=== PATIENT | female | born 1965 | race Caucasian/White ===

== ENCOUNTER → 2018-11-11 | Outpatient (CLI) | payer BC ==
[2018-11-11 13:56] VITALS: BP 146/88; PULSE 114; RESP 16; TEMP 97.9; BMI 40.5
--- NOTE | 2018-11-11 14:18 | P.HPBAR ---
Bariatric H&P - History & Physicial H&P Date: 11/11/18 History & Physicial: Visit/CC: initial visit Patient initial contact: Initial weight: 107.19 kg Initial weight in pounds: 236.31 Height: 5 ft 4 in Initial BMI: 40.5 Last weight: Current weight: 107.19 kg Current weight in pounds: 236.31 Current BMI: 40.5 [place] body weight (based on NIH guidelines): 54.431 kg Excess body weight loss: 0.0% The patient is a 53 year-old F who presents for Bariatric Assessment. Patient presents today to the bariatric clinic as a new patient evaluation. Patient has suffered with her weight intermittently over the years. Recently she was in a injury with a 4 wheel quadrant and gained 40 pounds since March. She's tried a variety of different weight loss methods and is having difficulty at this time. Patient suffers from hypertension and arthritis. No history of DVT or dysphasia. No GERD symptoms. No history of previous EGD. Denies tobacco use. She is completed 3 months of a seven-month required supervised weight loss. Review of Systems The patient denies any acute changes in vision or hearing, no dysphagia or odynophagia, no chest pain or shortness of breath, no dysuria or hematuria, no headache, no runny nose, no rectal bleeding or melena, no unexplained weight loss Past Medical History Past Medical History: Hypertension, Thyroid Disorder History of Any Multi-Drug Resistant Organisms: None Reported Past Surgical History: Cholecystectomy, Orthopedic Surgery, Tubal Ligation Additional Past Surgical History / Comment(s): carpal tunnel, trigger finger, right knee surgery Past Anesthesia/Blood Transfusion Reactions: No Reported Reaction Past Psychological History: No Psychological Hx Reported Smoking Status: Former smoker Past Alcohol Use History: None Reported Past Drug Use History: None Reported - Past Family History Father Family Medical History: AFIB, CVA/TIA, Hypertension Mother Family Medical History: Diabetes Mellitus, Hypertension Sister(s) Family Medical History: Hypertension Brother(s) Family Medical History: Hypertension Surgical - Exam Vital Signs Temp Pulse Resp BP 97.9 F 114 H 16 146/88 11/11/18 13:51 11/11/18 13:51 11/11/18 13:51 11/11/18 13:51 Physical exam: General: Well-developed, well-nourished HEENT: Normocephalic, sclerae nonicteric Abdomen: Nontender, nondistended Extremities: No edema Neuro: Alert and oriented Bariatric Assessment & Plan (1) Morbid obesity with BMI of 40.0-44.9, adult Narrative/Plan: The risks and benefits of the various bariatric procedures were discussed in detail with the patient. Patient interested in sleeve gastrectomy at this time. Patient appears to be a good candidate for that procedure. We'll plan preoperative EGD and lab work. Patient will follow up with us again prior to surgical scheduling. Continue supervised weight loss. Status: Acute Bariatric Checklist Checklist: Plan: Checklist: EGD: 1. Hiatal hernia: 2. H. Pylori: HgbA1c: Vitamin D: Smoking: Former smoker Primary care physician referral: Migel Muñiz Psychiatry clearance: Cardiology clearance: Sleep study: Diet journal: VTE risk score: VTE risk level: Rehab needs at discharge:
[2018-11-11 15:12] LABS: HCT 49.2 % (34.0-46.0); HGB 16.1 gm/dL (11.4-16.0); MCH 28.4 pg (25.0-35.0); MCHC 32.6 g/dL (31.0-37.0); MCV 87.2 fL (80.0-100.0); Mean Platelet Volume 6.3; Platelet Count 387 k/uL (150-450); RBC 5.64 m/uL (3.80-5.40); RDW 13.7 % (11.5-15.5); WBC 10.1 k/uL (3.8-10.6)
[2018-11-11 18:04] LABS: Albumin 4.5 g/dL (3.80-4.90); Albumin/Globulin Ratio 1.67 (1.60-3.17); Anion Gap 8.5 mmol/L (4.00-12.00); Calcium 9.6 mg/dL (8.7-10.3); Carbon Dioxide 27.5 mmol/L (21.6-31.8); Globulin 2.7 g/dL (1.6-3.3); Potassium 4.4 mmol/L (3.5-5.5); Total Bilirubin 0.4 mg/dL (0.2-1.2); Total Protein 7.2 g/dL (6.2-8.2)
[2018-11-11 18:12] LABS: Vitamin D 25 Hydroxy 20.9 ng/mL (30.0-100.0)
[2018-11-11 18:17] LABS: Folate, Serum 17.4 ng/mL
[2018-11-11 22:01] LABS: Hemoglobin A1C 7.3 % (4.0-6.0)
== END | disposition home or self-care (01) ==
LOC: BARWHC3 13:28
PROVIDERS: ATTEND Surgery
DX: E66.01 Morbid (severe) obesity due to excess calories (principal); E89.1 Postprocedural hypoinsulinemia; E55.9 Vitamin D deficiency, unspecified; Z68.41 Body mass index [BMI] 40.0-44.9, adult
CPT/HCPCS: 36415; 80053; 82306; 82607; 82746; 83036; 83540; 84425; 85027; 93005; 99201

== ENCOUNTER 2019-03-19 17:46 | Observation (INO) | payer BC ==
[2019-03-19 18:31] LABS: Basophils # (A) 0.1 k/uL (0-0.2); Basophils % (A) 1 %; Eosinophils # (A) 0.6 k/uL (0-0.7); Eosinophils % (A) 5 %; HCT 45.2 % (34.0-46.0); HGB 15.2 gm/dL (11.4-16.0); Lymphocytes # (A) 2.9 k/uL (1.0-4.8); Lymphocytes % (A) 27 %; MCHC 33.6 g/dL (31.0-37.0); MCV 86.2 fL (80.0-100.0); Mean Platelet Volume 6.7; Monocytes # (A) 0.4 k/uL (0-1.0); Monocytes % (A) 4 %; Neutrophils # (A) 6.8 k/uL (1.3-7.7); Neutrophils % (A) 62 %; Platelet Count 385 k/uL (150-450); RBC 5.25 m/uL (3.80-5.40); RDW 15.6 % (11.5-15.5); WBC 10.9 k/uL (3.8-10.6)
[2019-03-19 18:37] LABS: INR 0.9 (<1.2); Partial Thromboplastin Time 26.2 sec (22.0-30.0)
--- NOTE | 2019-03-19 18:37 | XR ---
EXAMINATION TYPE: XR chest 2V DATE OF EXAM: 03/19/2019 COMPARISON: NONE HISTORY: Chest pain and short of breath TECHNIQUE: Frontal and lateral views of the chest are obtained. FINDINGS: Heart and mediastinum are normal. Lungs are clear. Diaphragm is normal. There are chest le ads. Bony thorax is intact. IMPRESSION: Normal chest. Normal heart.
[2019-03-19 18:48] LABS: ALT 37 U/L (9-52); AST 33 U/L (14-36); African American GFR (CKD) >90 (>60 ml/min/1.73 sqM); Albumin 4.7 g/dL (3.5-5.0); Alkaline Phosphatase 89 U/L (38-126); Anion Gap 12 mmol/L; Blood Urea Nitrogen 18 mg/dL (7-17); Calcium 9.6 mg/dL (8.4-10.2); Carbon Dioxide 22 mmol/L (22-30); Chloride 107 mmol/L (98-107); Glucose 141 mg/dL (74-99); Magnesium 1.7 mg/dL (1.6-2.3); Potassium 4.8 mmol/L (3.5-5.1); Sodium 141 mmol/L (137-145); Total Bilirubin 0.5 mg/dL (0.2-1.3)
--- NOTE | 2019-03-19 19:16 | ED ---
Chest Pain HPI - General Chief Complaint: Chest Pain Stated Complaint: Chest pain Time Seen by Provider: 03/19/19 17:54 Source: patient, RN notes reviewed, old records reviewed Mode of arrival: ambulatory Limitations: no limitations - History of Present Illness Initial Comments: This is a 53-year-old female the ER for evaluation chest pain chest pain that is been persistent even though she had stress test x-ray. Patient does have history of cardiac risk factors. Chest pain diaphoresis 10th 2 weeks. No recent travel history no sick contacts. Patient continues to chest pain shortness of breath here in the ER MD Complaint: chest pain -: week(s) Onset: during rest, during exertion Pain Location: substernal, left chest Pain Radiation: LUE Severity: moderate Severity scale (1-10): 4 Quality: heaviness Consistency: intermittent Improves With: nothing Worsens With: exertion Anginal Symptoms: dyspnea Other Symptoms: other (None) Treatments Prior to Arrival: none - Related Data Home Medications Medication Instructions Recorded Confirmed Lisinopril-Hctz 20-12.5 mg 1 tab PO DAILY 11/08/18 03/19/19 [Zestoretic 20-12.5] Aspirin [Adult Low Dose Aspirin EC] 81 mg PO HS 03/19/19 03/19/19 Atorvastatin [Lipitor] 40 mg PO HS 03/19/19 03/19/19 Sertraline [Zoloft] 100 mg PO DAILY 03/19/19 03/19/19 metFORMIN HCL ER [Glucophage Xr] 500 mg PO BID 03/19/19 03/19/19 Allergies Allergy/AdvReac Type Severity Reaction Status Date / Time No Known Allergies Allergy Verified 03/19/19 21:39 Review of Systems ROS Statement: Those systems with pertinent positive or pertinent negative responses have been documented in the HPI. ROS Other: All systems not noted in ROS Statement are negative. Past Medical History Past Medical History: Hypertension, Thyroid Disorder History of Any Multi-Drug Resistant Organisms: None Reported Past Surgical History: Cholecystectomy, Orthopedic Surgery, Tubal Ligation Additional Past Surgical History / Comment(s): carpal tunnel, trigger finger, right knee surgery Past Anesthesia/Blood Transfusion Reactions: No Reported Reaction Past Psychological History: No Psychological Hx Reported Smoking Status: Former smoker Past Alcohol Use History: None Reported Past Drug Use History: None Reported - Past Family History Father Family Medical History: AFIB, CVA/TIA, Hypertension Mother Family Medical History: Diabetes Mellitus, Hypertension Sister(s) Family Medical History: Hypertension Brother(s) Family Medical History: Hypertension General Exam Limitations: no limitations General appearance: anxious Head exam: Present: atraumatic, normocephalic, normal inspection Eye exam: Present: normal appearance, PERRL, EOMI. Absent: scleral icterus, conjunctival injection, periorbital swelling ENT exam: Present: normal exam, mucous membranes moist Neck exam: Present: normal inspection. Absent: tenderness, meningismus, lymphadenopathy Respiratory exam: Present: normal lung sounds bilaterally. Absent: respiratory distress, wheezes, rales, rhonchi, stridor Cardiovascular Exam: Present: regular rate, normal rhythm, normal heart sounds. Absent: systolic murmur, diastolic murmur, rubs, gallop, clicks GI/Abdominal exam: Present: soft, normal bowel sounds. Absent: distended, tenderness, guarding, rebound, rigid Extremities exam: Present: normal inspection, full ROM, normal capillary refill. Absent: tenderness, pedal edema, joint swelling, calf tenderness Back exam: Present: normal inspection Neurological exam: Present: alert, oriented X3, CN II-XII intact Psychiatric exam: Present: normal affect, normal mood Skin exam: Present: warm, dry, intact, normal color. Absent: rash Course Vital Signs 03/19/19 03/19/19 03/19/19 17:50 18:30 19:00 Temperature 97.8 F Pulse Rate 116 H 123 H 104 H Respiratory 18 29 H 17 Rate Blood Pressure 156/95 131/77 124/84 O2 Sat by Pulse 97 95 95 Oximetry 03/19/19 03/19/19 19:23 21:21 Temperature 98.4 F Pulse Rate 87 Respiratory 18 18 Rate Blood Pressure 124/83 O2 Sat by Pulse 96 Oximetry - Reevaluation(s) Reevaluation #1: Medical record including prior stress test is reviewed Patient has no current complaints Occasionally does have episodic chest pain without shortness of breath Chest Pain MDM - MDM 53 female the ER for evaluation chest pain shortness of breath. Patient did have recent stress test will admit for further evaluation monitoring with cardiology, patient is very concerned regarding symptoms and heart disease Critical Care Time Critical Care Time: Yes Total Critical Care Time: 31 Disposition Clinical Impression: Chest pain, Morbid obesity with BMI of 40.0-44.9, adult Disposition: ADMITTED IP TO THIS HOSP Condition: Stable Is patient prescribed a controlled substance at d/c from ED?: No
[2019-03-19] MEDS ORDERED: HEPARIN SODIUM,PORCINE 5,000 UNIT/ML 1 ML VIAL IV ONE (20:24)
[2019-03-19] MEDS ORDERED: NITROGLYCERIN SL TABS 0.4 MG TAB SUBLINGUAL PRN (20:24)
[2019-03-19] MEDS ORDERED: HEPARIN SODIUM,PORCINE 5,000 UNIT/ML 1 ML VIAL IV PRN (20:24)
[2019-03-19] MEDS ORDERED: ASPIRIN 81 MG PO STA (20:24)
[2019-03-19] MEDS: SODIUM CHLORIDE 0.9% 1,000 ML IV SCH (21:16)
[2019-03-19] MEDS: HEPARIN SOD,PORK IN 0.45% NACL 25,000 UNIT in 0.45% NACL 1 250ML.BAG IV SCH (21:17)
[2019-03-19 21:29] LABS: Glucose,Whole Blood 132 mg/dL (75-99)
[2019-03-19] MEDS: ATORVASTATIN 40 MG TAB PO SCH (23:16)
[2019-03-19] MEDS ORDERED: ACETAMINOPHEN TAB 325 MG TAB PO STA (23:17)
[2019-03-20] MEDS: SODIUM CHLORIDE 0.9% 1,000 ML IV SCH ×2 (05:24→11:34)
[2019-03-20 06:52] LABS: Mean Platelet Volume 6.7; Platelet Count 333 k/uL (150-450)
[2019-03-20 07:09] LABS: Cholesterol 201 mg/dL (<200); HDL Cholesterol 42 mg/dL (40-60); LDL Cholesterol,Calculated 135 mg/dL (0-99); Triglycerides 122 mg/dL (<150)
[2019-03-20 07:20] LABS: Glucose,Whole Blood 107 mg/dL (75-99)
[2019-03-20] MEDS: INSULIN ASPART (NovoLOG) 100 UNIT/ML VIAL SQ SCH ×4 (07:30→19:39)
[2019-03-20] MEDS: ASPIRIN 325 MG TAB PO SCH (09:09)
--- NOTE | 2019-03-20 09:25 | US ---
EXAMINATION TYPE: US venous doppler duplex LE DATE OF EXAM: 03/20/2019 9:10 AM COMPARISON: NONE CLINICAL HISTORY: leg pain. Pain bilateral feet SIDE PERFORMED: Bilateral TECHNIQUE: The lower extremity deep venous system is examined utilizing real time linear array sonog char with graded compression, doppler sonography and color-flow sonography. VESSELS IMAGED: External Iliac Vein (EIV) Common Femoral Vein Deep Femoral Vein Greater Saphenous Vein * Femoral Vein Popliteal Vein Small Saphenous Vein * Proximal Calf Veins (* superficial vessels) Right Leg: No evidence of DVT as visualized Left Leg: No evidence of DVT as visualized No popliteal fossa lesion is seen. IMPRESSION: THIS EXAMINATION IS NEGATIVE FOR DVT IN BOTH LEGS.
[2019-03-20 11:46] LABS: Glucose,Whole Blood 114 mg/dL (75-99)
--- NOTE | 2019-03-20 12:02 | P.CRDCN ---
History of Present Illness History of present illness: This is a pleasant 53-year-old female past medical history significant for hypertension, diabetes mellitus, dyslipidemia, hypothyroidism and obesity. She follows in the office with Dr. Kelly. Weakness or seizure consultation secondary to chest discomfort. She states intermittently for the previous couple of months she has been experiencing chest heaviness in the midsternal region and radiates to the right shoulder. Her symptoms are not related to physical activity or exertion. Intake. She has had her gallbladder removed in the past. At times she states the pain becomes extremely intense and crushing however for the most part is a tall heavy ache. Was not associated with alvarado rtness of breath, dizziness, nausea, vomiting or diaphoresis. She states she has been taking Tums [id number] regularly with no relief. She also was complaining of bilateral extremities discomfort and heaviness. She states she did have a stress test in the office on Thursday however she continues to have chest discomfort and is becoming quite frustrated because cannot be determined. EKG reveals sinus tachycardia heart rate of 119, inferior Q waves noted. No acute ST or T wave abnormalities noted. Chest x-ray is negative for an acute cardiopulmonary process. Laboratory data reviewed, WBC 10.9, hemoglobin 18.2, platelets 333, sodium 141, potassium 4.8, creatinine 0.79, magnesium 1.7, troponin negative 3, BNP 96, LDL 135 and a 42. Current cardiac medications include atorvastatin 40 mg which she just started yesterday, lisinopril/HCTZ 20/12.5 mg daily and aspirin 81 mg daily. At the time of my exam: CONSTITUTIONAL: Denies fever. Denies chills. EYES: Denies blurred vision. Denies vision changes. Denies eye pain. EARS, NOSE, MOUTH & THROAT: Denies headache. Denies sore throat. Denies ear pain. CARDIOVASCULAR: Denies chest pain. Denies shortness of breath. Denies orthopnea. Denies PND. Denies palpitations. RESPIRATORY: Denies cough. GASTROINTESTINAL: Denies abdominal pain. Denies diarrhea. Denies constipation. Denies nausea. Denies vomiting. MUSCULOSKELETAL: Denies myalgias. INTEGUMENTARY: Denies pruitis. Denies rash. NEUROLOGIC: Denies numbness. Denies tingling. Denies weakness. PSYCHIATRIC: Denies anxiety. Denies depression. ENDOCRINE: Denies fatigue. Denies weight change. Denies polydipsia. Denies polyurina. GENITOURINARY: Denies burning, hematuria or urgency with micturation. HEMATOLOGIC: Denies history of anemia. Denies bleeding. Blood pressure 103/71 heart rate 77 afebrile maintaining oxygen saturation on room air GENERAL: This is a 53-year-old female in no apparent distress at the time of my examination. HEENT: Head is atraumatic, normocephalic. Pupils are equal, round. Sclerae anicteric. Conjunctivae are clear. Mucous membranes of the mouth are moist. Neck is supple. There is no jugular venous distention. No carotid bruit is heard. LUNGS: Clear to auscultation no wheezes, rales or rhonchi. No chest wall tenderness is noted on palpation or with deep breathing. HEART: Regular rate and rhythm without murmurs, rubs or gallops. S1 and S2 heard. ABDOMEN: Soft, nontender. Bowel sounds are heard. No organomegaly noted. EXTREMITIES: No evidence of peripheral edema and no calf tenderness noted. VASCULAR: Radial and dorsalis pedis pulses palpated, no evidence of clubbing. NEUROLOGIC: Patient is awake, alert and oriented x3. ASSESSMENT Persistent chest discomfort, an acute coronary event has been ruled out. Hypertension Dyslipidemia Diabetes mellitus Hypothyroidism Obesity, BMI 36 PLAN Check bilateral lower extremity venous duplex to rule out a DVT. Nothing by mouth after midnight for possible cardiac catheterization in the morning. We will obtain records from the office and review the stress test that she had on Thursday. If she did not have an echocardiogram we will get one in the morning. Further recommendations to follow based upon clinical course. Thank you kindly for this consultation. Nurse Practitioner note has been reviewed, I agree with a documented findings and plan of care. Patient was seen and examined. Past Medical History Past Medical History: Diabetes Mellitus, Hypertension, Thyroid Disorder Additional Past Medical History / Comment(s): DM diagnosed 10/2018 History of Any Multi-Drug Resistant Organisms: None Reported Past Surgical History: Cholecystectomy, Orthopedic Surgery, Tubal Ligation Additional Past Surgical History / Comment(s): carpal tunnel, trigger finger, right knee surgery Past Anesthesia/Blood Transfusion Reactions: No Reported Reaction Smoking Status: Former smoker - Past Family History Father Family Medical History: AFIB, CVA/TIA, Hypertension Mother Family Medical History: Diabetes Mellitus, Hypertension Sister(s) Family Medical History: Hypertension Brother(s) Family Medical History: Hypertension Medications and Allergies Home Medications Medication Instructions Recorded Confirmed Type Lisinopril-Hctz 20-12.5 mg 1 tab PO DAILY 11/08/18 03/19/19 History [Zestoretic 20-12.5] Aspirin [Adult Low Dose Aspirin EC] 81 mg PO HS 03/19/19 03/19/19 History Atorvastatin [Lipitor] 40 mg PO HS 03/19/19 03/19/19 History Sertraline [Zoloft] 100 mg PO DAILY 03/19/19 03/19/19 History metFORMIN HCL ER [Glucophage Xr] 500 mg PO BID 03/19/19 03/19/19 History Allergies Allergy/AdvReac Type Severity Reaction Status Date / Time No Known Allergies Allergy Verified 03/19/19 21:39 Physical Exam Vitals: Vital Signs Temp Pulse Pulse Pulse Resp BP BP 03/20/19 07:05 97.7 F 60 18 105/66 03/20/19 04:00 97.7 F 79 16 101/66 03/19/19 23:49 98.3 F 71 15 102/64 03/19/19 21:34 97.9 F 82 15 127/73 03/19/19 21:21 18 03/19/19 19:23 98.4 F 87 18 124/83 03/19/19 19:00 104 H 17 124/84 03/19/19 18:30 123 H 29 H 131/77 03/19/19 17:50 97.8 F 116 H 18 156/95 Pulse Ox 03/20/19 07:05 98 03/20/19 04:00 98 03/19/19 23:49 97 03/19/19 21:34 98 03/19/19 21:21 03/19/19 19:23 96 03/19/19 19:00 95 03/19/19 18:30 95 03/19/19 17:50 97 Intake and Output 03/19/19 03/20/19 03/20/19 22:59 06:59 14:59 Intake Total 73.015 Balance 73.015 Intake: Intake, IV Titration 73.015 Amount Heparin Sod,Pork in 0.45% 73.015 NaCl 25,000 unit In 0.45 % NaCl 1 250ml.bag @ 10.5 UNITS/KG/HR 10.002 mls/ hr IV .Q24H [facility] Rx#: [id number] Other: Voiding Method Toilet Toilet # Voids 1 Weight 95.254 kg Results 03/20/19 06:35 03/19/19 18:14 Cardiac Enzymes 03/19/19 03/19/19 03/20/19 Range/Units 18:14 18:14 00:23 AST 33 (14-36) U/L Troponin I <0.012 <0.012 (0.000-0.034) ng/mL 03/20/19 Range/Units 06:35 AST (14-36) U/L Troponin I <0.012 (0.000-0.034) ng/mL Coagulation 03/19/19 03/20/19 Range/Units 18:14 03:48 PT 10.0 (9.0-12.0) sec APTT 26.2 35.4 H (22.0-30.0) sec Lipids 03/20/19 Range/Units 06:35 Triglycerides 122 (<150) mg/dL Cholesterol 201 H (<200) mg/dL HDL Cholesterol 42 (40-60) mg/dL CBC 03/19/19 03/20/19 Range/Units 18:14 06:35 WBC 10.9 H (3.8-10.6) k/uL RBC 5.25 (3.80-5.40) m/uL Hgb 15.2 (11.4-16.0) gm/dL Hct 45.2 (34.0-46.0) % Plt Count 385 333 (150-450) k/uL Comprehensive Metabolic Panel 03/19/19 Range/Units 18:14 Sodium 141 (137-145) mmol/L Potassium 4.8 (3.5-5.1) mmol/L Chloride 107 (98-107) mmol/L Carbon Dioxide 22 (22-30) mmol/L BUN 18 H (7-17) mg/dL Creatinine 0.79 (0.52-1.04) mg/dL Glucose 141 H (74-99) mg/dL Calcium 9.6 (8.4-10.2) mg/dL AST 33 (14-36) U/L ALT 37 (9-52) U/L Alkaline Phosphatase 89 (38-126) U/L Total Protein 8.0 (6.3-8.2) g/dL Albumin 4.7 (3.5-5.0) g/dL Current Medications Generic Name Dose Route Start Last Admin Trade Name Edgarq PRN Reason Stop Dose Admin Aspirin 325 mg 03/20/19 09:00 Aspirin PO DAILY [facility] Atorvastatin Calcium 40 mg 03/19/19 22:15 03/19/19 23:16 Lipitor PO 40 mg HS AMADOU Administration Heparin Sodium (Porcine) 0 unit 03/19/19 20:24 03/20/19 04:42 Heparin IV 4,000 unit Q6HR PRN Administration Low PTT Protocol Heparin Sodium/Sodium Chloride 250 mls @ 10.002 mls/hr 03/19/19 20:30 03/20/19 04:35 25,000 unit/ Sodium Chloride IV 13.5 units/kg/hr .Q24H AMADOU 12.859 mls/hr Titration Protocol 10.5 UNITS/KG/HR Sodium Chloride 1,000 mls @ 100 mls/hr 03/19/19 20:30 03/20/19 05:24 Saline 0.9% IV 100 mls/hr .Q10H AMADOU Administration Insulin Aspart 0 unit 03/20/19 07:30 03/20/19 07:30 Novolog SQ Not Given ACHS [facility] Protocol Nitroglycerin 0.4 mg 03/19/19 20:24 Nitrostat SUBLINGUAL Q5M PRN Chest Pain Intake and Output 03/19/19 03/20/19 03/20/19 22:59 06:59 14:59 Intake Total 73.015 Balance 73.015 Intake: Intake, IV Titration 73.015 Amount Heparin Sod,Pork in 0.45% 73.015 NaCl 25,000 unit In 0.45 % NaCl 1 250ml.bag @ 10.5 UNITS/KG/HR 10.002 mls/ hr IV .Q24H [facility] Rx#: [id number] Other: Voiding Method Toilet Toilet # Voids 1 Weight 95.254 kg 03/20/19 06:35 03/19/19 18:14
--- NOTE | 2019-03-20 14:38 | P.HPIM ---
History of Present Illness H&P Date: 03/20/19 Chief Complaint: Chest discomfort on and off for the past 1 week Ms. Shultz is a 53-year-old female with a past medical history of hypertension, obesity, recently diagnosed with diabetes mellitus, thyroid disorder coming into the hospital with a chief complaint of chest pressure-like symptoms that have been going on for the past 1-2 weeks. Patient states that for the past 2 weeks she has been experiencing chest pressure-like symptoms in the midsternal area on and off. There are no aggravating or relieving factors she mentions that she sits and watches television and she can have the pain come and go. Patient denies having any nausea or vomiting or dizziness or diaphoresis with these chest pains. No relationship with physical activity or exertion. She also mentions about her right lower extremity pain and heaviness. She mentions about having a stress test done in an outpatient setting, however she still continues to have this chest heaviness symptoms and she is worried about it and so caught herself admitted. As per her patient had similar type of episode that happened 1 year back. On review of system patient denies having any shortness of breath, cough. No fevers chills or rigors. No abdominal pain nausea vomiting or diarrhea. No slurring of speech or weakness of her extremities. No facial droop. No neck rigidity. She denies having any recent travel. She denies having any lower extremity edema. No orthopnea PND. No hematuria or dysuria. In the emergency the patient had lab work done which was within normal limits. She had serial troponins 2 less than 0.012 and She had an EKG showing sinus tachycardia with no ST or T-wave abnormalities. Chest x-ray negative for any acute cardiopulmonary process. Review of Systems CONSTITUTIONAL: Denies fever. Denies chills. EYES: Denies blurred vision. Denies vision changes. Denies eye pain. EARS, NOSE, MOUTH & THROAT: Denies headache. Denies sore throat. Denies ear pain. CARDIOVASCULAR: As per HPI RESPIRATORY: Denies cough. GASTROINTESTINAL: Denies abdominal pain. Denies diarrhea. Denies constipation. Denies nausea. Denies vomiting. MUSCULOSKELETAL: Denies myalgias. INTEGUMENTARY: Denies pruitis. Denies rash. NEUROLOGIC: Denies numbness. Denies tingling. Denies weakness. PSYCHIATRIC: Denies anxiety. Denies depression. ENDOCRINE: Denies fatigue. Denies weight change. Denies polydipsia. Denies polyurina. GENITOURINARY: Denies burning, hematuria or urgency with micturation. HEMATOLOGIC: Denies history of anemia. Denies bleeding. All 14 of his systems are negative except for the ones mentioned above Past Medical History Past Medical History: Diabetes Mellitus, Hypertension, Thyroid Disorder Additional Past Medical History / Comment(s): DM diagnosed 10/2018 History of Any Multi-Drug Resistant Organisms: None Reported Past Surgical History: Cholecystectomy, Orthopedic Surgery, Tubal Ligation Additional Past Surgical History / Comment(s): carpal tunnel, trigger finger, right knee surgery Past Anesthesia/Blood Transfusion Reactions: No Reported Reaction Smoking Status: Former smoker - Past Family History Father Family Medical History: AFIB, CVA/TIA, Hypertension Mother Family Medical History: Diabetes Mellitus, Hypertension Sister(s) Family Medical History: Hypertension Brother(s) Family Medical History: Hypertension Medications and Allergies Home Medications Medication Instructions Recorded Confirmed Type Lisinopril-Hctz 20-12.5 mg 1 tab PO DAILY 11/08/18 03/19/19 History [Zestoretic 20-12.5] Aspirin [Adult Low Dose Aspirin EC] 81 mg PO HS 03/19/19 03/19/19 History Atorvastatin [Lipitor] 40 mg PO HS 03/19/19 03/19/19 History Sertraline [Zoloft] 100 mg PO DAILY 03/19/19 03/19/19 History metFORMIN HCL ER [Glucophage Xr] 500 mg PO BID 03/19/19 03/19/19 History Allergies Allergy/AdvReac Type Severity Reaction Status Date / Time No Known Allergies Allergy Verified 03/19/19 21:39 Physical Exam Vitals: Vital Signs Temp Pulse Pulse Pulse Resp BP BP 03/20/19 12:00 79 77 18 03/20/19 11:50 97.5 F L 77 18 103/71 03/20/19 08:00 18 03/20/19 07:05 97.7 F 60 18 105/66 03/20/19 04:00 97.7 F 79 16 101/66 03/19/19 23:49 98.3 F 71 15 102/64 03/19/19 21:34 97.9 F 82 15 127/73 03/19/19 21:21 18 03/19/19 19:23 98.4 F 87 18 124/83 03/19/19 19:00 104 H 17 124/84 03/19/19 18:30 123 H 29 H 131/77 03/19/19 17:50 97.8 F 116 H 18 156/95 Pulse Ox 03/20/19 12:00 03/20/19 11:50 95 03/20/19 08:00 03/20/19 07:05 98 03/20/19 04:00 98 03/19/19 23:49 97 03/19/19 21:34 98 03/19/19 21:21 03/19/19 19:23 96 03/19/19 19:00 95 03/19/19 18:30 95 03/19/19 17:50 97 Intake and Output 03/19/19 03/20/19 03/20/19 22:59 06:59 14:59 Intake Total 73.015 600 Balance 73.015 600 Intake: Intake, IV Titration 73.015 Amount Heparin Sod,Pork in 0.45% 73.015 NaCl 25,000 unit In 0.45 % NaCl 1 250ml.bag @ 10.5 UNITS/KG/HR 10.002 mls/ hr IV .Q24H [facility] Rx#: [id number] Oral 400 Other 200 Other: Voiding Method Toilet Toilet Toilet # Voids 1 Weight 95.254 kg GEN. APPEARANCE: alert, in no apparent distress HEAD EXAM: atraumatic, normocephalic, normal inspection EYE EXAM: No pallor. No icterus NECK EXAM: No thyromegaly. No lymphadenopathy. RESPIRATORY EXAM: Bilateral breath sounds are positive. No wheeze or crackles. CARDIOVASCULAR EXAM: S1 and S2 heard. Tachycardia. GI/ABDOMINAL EXAM: Abdomen is soft nontender. Normal bowel sounds. Organomegaly could not be appreciated due to huge body habitus EXTREMITIES EXAM: No peripheral edema. NEUROLOGICAL EXAM: alert, oriented X3, no focal neurological deficits. PSYCHIATRIC EXAM: normal affect, normal mood SKIN EXAM: warm, dry, intact, normal color. Absent: rash Results CBC & Chem 7: 03/20/19 06:35 03/19/19 18:14 Labs: Abnormal Lab Results - Last 24 Hours (Table) 07/03/19/19 03/19/19 Range/Units 18:14 18:14 21:27 WBC 10.9 H (3.8-10.6) k/uL RDW 15.6 H (11.5-15.5) % APTT (22.0-30.0) sec BUN 18 H (7-17) mg/dL Glucose 141 H (74-99) mg/dL POC Glucose (mg/dL) 132 H (75-99) mg/dL Cholesterol (<200) mg/dL LDL Cholesterol, Calc (0-99) mg/dL 03/20/19 03/20/19 03/20/19 Range/Units 03:48 06:35 07:18 WBC (3.8-10.6) k/uL RDW (11.5-15.5) % APTT 35.4 H (22.0-30.0) sec BUN (7-17) mg/dL Glucose (74-99) mg/dL POC Glucose (mg/dL) 107 H (75-99) mg/dL Cholesterol 201 H (<200) mg/dL LDL Cholesterol, Calc 135 H (0-99) mg/dL 03/20/19 03/20/19 Range/Units 10:55 11:44 WBC (3.8-10.6) k/uL RDW (11.5-15.5) % APTT 44.7 H (22.0-30.0) sec BUN (7-17) mg/dL Glucose (74-99) mg/dL POC Glucose (mg/dL) 114 H (75-99) mg/dL Cholesterol (<200) mg/dL LDL Cholesterol, Calc (0-99) mg/dL Thrombosis Risk Factor Assmnt - Choose All That Apply Any of the Below Risk Factors Present?: Yes Each Factor Represents 1 point: Age 41-60 years, Obesity (BMI >25) Other Risk Factors: No Other congenital or acquired thrombophilia - If yes, enter type in comment: No Thrombosis Risk Factor Assessment Total Risk Factor Score: 2 Thrombosis Risk Factor Assessment Level: Low Risk Assessment and Plan Assessment: ASSESSMENT Unstable angina Hypertension Recently diagnosed with type 2 diabetes mellitus Dyslipidemia Hypothyroidism Obesity with BMI of 36 PLAN: Patient has been started on heparin drip, aspirin and statin. We will continue to monitor EKG and serial troponins. As the patient recently had a stress test we'll try to get those reports. Cardiology has been consulted and planning for Tomorrow morning. Home medications have been resumed. Blood pressure has been running on the lower side so her blood pressure medications have been put on hold. Further recommendations to follow depending on the progress of the patient. The treatment plan was discussed in detail with the patient and her family members at the bedside in detail.
[2019-03-20 16:28] LABS: Glucose,Whole Blood 125 mg/dL (75-99)
[2019-03-20 19:39] LABS: Glucose,Whole Blood 127 mg/dL (75-99)
[2019-03-20] MEDS: ATORVASTATIN 40 MG TAB PO SCH (20:02)
[2019-03-20] MEDS: HEPARIN SOD,PORK IN 0.45% NACL 25,000 UNIT in 0.45% NACL 1 250ML.BAG IV SCH (23:03)
[2019-03-21] MEDS: SODIUM CHLORIDE 0.9% 1,000 ML IV SCH ×2 (03:49→17:04)
[2019-03-21] MEDS: ASPIRIN 325 MG TAB PO SCH (06:40)
[2019-03-21 06:59] LABS: Glucose,Whole Blood 119 mg/dL (75-99)
[2019-03-21 07:11] LABS: Mean Platelet Volume 6.2; Platelet Count 338 k/uL (150-450)
[2019-03-21 07:35] VITALS: RESP 16
[2019-03-21] MEDS: INSULIN ASPART (NovoLOG) 100 UNIT/ML VIAL SQ SCH ×3 (07:56→17:30)
[2019-03-21] MEDS ORDERED: ALPRAZolam 0.25 MG TAB PO PRN (08:02)
[2019-03-21] MEDS ORDERED: ALPRAZolam 0.5 MG TAB PO PRN (08:02)
--- NOTE | 2019-03-21 08:22 | PN ---
PROGRESS NOTE Ayesha Shultz is doing well today. She is quite anxious. She is keen on having a cardiac cath and insists the stress test may not show any abnormalities. She had a stress echo on Thursday. We will review these results. Her troponins are negative. She is resting comfortably without any symptoms. However, she is anxious and wishes to have a cardiac cath. Vital signs stable. S1, S2 heard normally. Lungs reveal bilateral decent air entry. Abdomen is soft, nontender. Lower extremities reveal normal pulses. No edema. Central nervous system is normal. This patient has type 2 diabetes, newly diagnosed and hypertension and chest pain syndrome seems atypical with negative troponins. However, I will speak to Dr. Booker, review the stress echo that was performed on Thursday and we will consider cardiac catheterization based on findings. Discussed my thoughts in detail with the patient. I will talk to Dr. Booker and review the stress echo. For now we will continue current medications. Patient is comfortable. MMODL / IJN: [id number] /
[2019-03-21] MEDS ORDERED: SERTRALINE 100 MG TAB PO SCH (09:00)
[2019-03-21] MEDS ORDERED: LIDOCAINE 1% INJ 10MG/ML (20 ML MDV) ONE (09:15)
[2019-03-21] MEDS ORDERED: VERAPAMIL 2.5 MG/ML 2 ML AMP ONE (09:15)
[2019-03-21] MEDS ORDERED: fentaNYL (PF) 50 MCG/ML 2 ML AMP ONE (09:25)
[2019-03-21] MEDS ORDERED: fentaNYL (PF) 50 MCG/ML 2 ML AMP IV ONE (09:37)
[2019-03-21] MEDS ORDERED: MIDAZOLAM (PF) 2 MG/2 ML VIAL IV ONE (09:38)
[2019-03-21] MEDS ORDERED: LIDOCAINE 1% INJ 10MG/ML (20 ML MDV) SQ ONE (09:46)
[2019-03-21] MEDS ORDERED: HEPARIN SODIUM 1,000 UN/ML (10ML VL) ONE (09:49)
[2019-03-21] MEDS: VERAPAMIL SYRINGE (5 MG/10 ML) INTRAARTER ONE ×2 (09:52→10:06)
[2019-03-21] MEDS ORDERED: NITROGLYCERIN OINT 1 INCH/GM PACKET TOPICAL ONE ×2 (09:55→09:57)
[2019-03-21] MEDS ORDERED: IOPAMIDOL-370 125ML BTL INJ ONE (10:05)
[2019-03-21] MEDS ORDERED: IV FLUID CONTINUATION 400 ML IV ONE (10:06)
[2019-03-21] MEDS ORDERED: RX INFO: IV CONTRAST WAS GIVEN 1 EACH MISC MISCELLANE PRN (10:26)
--- NOTE | 2019-03-21 10:26 | P.PCN ---
Date of Procedure: 03/21/19 Preoperative Diagnosis: Chest pain, recurrent Postoperative Diagnosis: Normal coronary arteries Procedure(s) Performed: Left heart catheterization without left ventriculography Description of Procedure: HISTORY: This is a 52-year-old female with history of hypertension, diabetes and hyperlipidemia and also hypothyroidism was been experiencing chest pain. Patient was evaluated by stress echocardiogram which was negative for ischemia. However, patient has been having chest pain and palpitation and is admitted through the emergency room to the hospital. Her cardiac enzymes and EKGs are negative. Patient was given the information was explained that the pains may be noncardiac. However, patient has been having recurrent chest pains and has multiple risk factors and family history, and requested that patient have a card iac catheterization for definitive diagnosis. This was explained the risks and benefits of the procedure which she fully understood and accepted CONSENT:I have discussed the risks, benefits and alternative therapies for the above-mentioned procedure and for both sedation/analgesia as well as necessary blood product administration, if indicated, as they pertain to this patient. The patient has indicated understanding and acceptance of the risks and procedures discussed. PROCEDURE: Patient was brought to the lab in a fasting state. Patient was given some IV sedation. The right groin is infiltrated with lidocaine and right femoral artery was entered using Seldinger technique. A 6-Iraqi catheter was left in place and selective coronary arteriography and left ventriculography was performed. Patient tolerated the procedure well. Femoral angiogram was performed and Angio-Seal was applied for hemostasis. No immediate complications were noted and patient was transferred to [facility] in a stable condition Conscious Sedation: Versed 1 mg Fentanyl 50 g Duration 29 minutes HEMODYNAMICS:. The aortic pressure is about 130/85. The left ventricle end- diastolic pressure is about 12-16. There was no gradient across the aortic valve SELECTIVE CORONARY ARTERIOGRAPHY: LEFT MAIN: This is normal in length and patent and free of occlusive disease THE LEFT ANTERIOR DESCENDING CORONARY ARTERY:. This is a good caliber vessel giving rise to small septal and several diagonal branches of small caliber. The LAD and branches are free of any significant occlusive disease THE LEFT CIRCUMFLEX AND IS CORONARY ARTERY:. The circumflex is a good caliber vessel and dominant, giving rise good-sized OM branch. The circumflex coronary artery and branches are free of occlusive disease THE RIGHT CORONARY ARTERY:. Small and nondominant and free of occlusive disease LEFT VENTRICULOGRAPHY:. Not performed FINAL IMPRESSION:, Normal coronary arteries. Elevated end-diastolic pressure PLAN:. Maximum medical therapy and risk factor modification PROGNOSIS: Fair
[2019-03-21] MEDS ORDERED: SODIUM CHLORIDE 0.9% 1,000 ML IV SCH (10:30)
[2019-03-21 11:45] LABS: Glucose,Whole Blood 203 mg/dL (75-99)
[2019-03-21] MEDS ORDERED: ACETAMINOPHEN TAB 325 MG TAB PO PRN (12:39)
[2019-03-21 12:53] VITALS: TEMP 97.5
[2019-03-21 14:20] VITALS: BP 127/57; PULSE 78
[2019-03-21 16:49] LABS: Glucose,Whole Blood 115 mg/dL (75-99)
--- NOTE | 2019-03-21 16:53 | P.DS ---
Providers Date of admission: 03/19/19 20:24 Attending physician: Migel Muñiz Consults: 03/19/19 20:24 Consult Physician Urgent Consulting Provider: Jean Kelly Consult Reason/Comments: cp Do you want consulting provider notified?: Yes Primary care physician: Migel Muñiz Hospital Course: Final Diagnoses: Unstable angina, status post cardiac catheterization reporting normal coronaries. Hypertension Recently diagnosed with type 2 diabetes mellitus Dyslipidemia Hypothyroidism Obesity with BMI of 36 Hospital course:Ms. Shultz is a 53-year-old female with a past medical history of hypertension, obesity, recently diagnosed with diabetes mellitus, thyroid disorder coming into the hospital with a chief complaint of chest pressure-like symptoms that have been going on for the past 1-2 weeks. Patient states that for the past 2 weeks she has been experiencing chest pressure-like symptoms in the midsternal area on and off. There are no aggravating or relieving factors she mentions that she sits and watches television and she can have the pain come and go. Patient denies having any nausea or vomiting or dizziness or diaphoresis with these chest pains. No relationship with physical activity or exertion. She also mentions about her right lower extremity pain and heaviness. She mentions about having a stress test done in an outpatient setting, however she still continues to have this chest heaviness symptoms and she is worried about it and so caught herself admitted. As per her patient had similar type of episode that happened 1 year back. On review of system patient denies having any shortness of breath, cough. No fevers chills or rigors. No abdominal pain nausea vomiting or diarrhea. No slurring of speech or weakness of her extremities. No facial droop. No neck rigidity. She denies having any recent travel. She denies having any lower extremity edema. No orthopnea PND. No hematuria or dysuria. In the emergency the patient had lab work done which was within normal limits. She had serial troponins 2 less than 0.012 and She had an EKG showing sinus tachycardia with no ST or T-wave abnormalities. Chest x-ray negative for any acute cardiopulmonary process. Evaluated by cardiology, underwent cardiac catheterization reporting normal coronary arteries, elevated end-diastolic pressure; recommending maximizing medical therapy and risk factor modification. Significant clinical improvement. Cleared by cardiology for discharge. She is being discharged home in stable condition with guarded prognosis. GEN. APPEARANCE: alert and oriented 3, no acute distress RESPIRATORY EXAM: Bilateral breath sounds are positive. No wheeze or crackles. CARDIOVASCULAR EXAM: S1 and S2 heard, regular, no murmur rubs or gallops GI/ABDOMINAL EXAM: Abdomen is soft nontender. Normal bowel sounds. No Organomegaly. No guarding, no rigidity. EXTREMITIES EXAM: No peripheral edema. NEUROLOGICAL EXAM: no focal neurological deficits. The impression and plan of care has been dictated as directed. : I performed a history and examination of this patient, discussed the same with the dictator. I agree with the dictator's note ,documented as a scribe. Any additional findings or plans will be noted. Time taken: 35 minutes Patient Condition at Discharge: Undetermined Plan - Discharge Summary Discharge Rx Participant: No New Discharge Prescriptions: Continue Lisinopril-Hctz 20-12.5 mg [Zestoretic 20-12.5] 1 tab PO DAILY metFORMIN HCL ER [Glucophage Xr] 500 mg PO BID Sertraline [Zoloft] 100 mg PO DAILY Atorvastatin [Lipitor] 40 mg PO HS Aspirin [Adult Low Dose Aspirin EC] 81 mg PO HS Discharge Medication List Lisinopril-Hctz 20-12.5 mg [Zestoretic 20-12.5] 1 tab PO DAILY 11/08/18 [History] Aspirin [Adult Low Dose Aspirin EC] 81 mg PO HS 03/19/19 [History] Atorvastatin [Lipitor] 40 mg PO HS 03/19/19 [History] Sertraline [Zoloft] 100 mg PO DAILY 03/19/19 [History] metFORMIN HCL ER [Glucophage Xr] 500 mg PO BID 03/19/19 [History] Follow up Appointment(s)/Referral(s): Jean Kelly MD [STAFF PHYSICIAN] - 1 Week (office will call patient with a date and time. ) Migel Muñiz DO [Primary Care Provider] - 03/28/19 11:20 am Ambulatory/Diagnostic Orders: Complete Blood Count w/diff [LAB.AMB] Time Frame: 3 Days, Location: None Selected Patient Instructions/Handouts: Chest Pain (ED)
[2019-03-22] MEDS ORDERED: ASPIRIN 81 MG PO SCH (09:00)
--- NOTE | 2019-03-22 11:50 | ECHOF ---
Referral Reason:cp MEASUREMENTS -------- HEIGHT: 162.6 cm WEIGHT: 95.3 kg BP: 121/79 RVIDd: 2.9 cm (< 3.3) IVSd: 1.1 cm (0.6 - 1.1) LVIDd: 4.3 cm (3.9 - 5.3) LVPWd: 1.0 cm (0.6 - 1.1) IVSs: 1.9 cm LVIDs: 2.7 cm LVPWs: 1.8 cm LA Diam: 4.1 cm (2.7 - 3.8) Ao Diam: 3.1 cm (2.0 - 3.7) AV Cusp: 2.2 cm (1.5 - 2.6) LA Diam: 4.1 cm (2.7 - 3.8) MV EXCURSION: 15.271 mm (> 18.000) MV EF SLOPE: 77 mm/s (70 - 150) EPSS: 0.6 cm MV E Chance: 1.06 m/s MV DecT: 208 ms MV A Chance: 0.86 m/s MV E/A Ratio: 1.23 FINDINGS -------- Sinus rhythm. This was a technically good study. LV size, wall thickness and systolic function are normal, with an EF greater than 55%. The right ventricle is normal in size and function. The left atrium is mildly dilated. The right atrium is normal in size. Interatrial and interventricular septum intact. The aortic valve is trileaflet, and appears structurally normal. No aortic stenosis or regurgitation. Normal appearing mitral valve. Trace tricuspid regurgitation present. There is no evidence of pulmonary hypertension. The pulmonic valve is normal. The aortic root, ascending aorta and aortic arch are normal. Normal inferior vena cava with normal inspiratory collapse consistent with estimated right atrial pre ssure of 5 mmHg. The pericardium is normal. CONCLUSIONS -------- 1. Sinus rhythm. 2. This was a technically good study. 3. LV size, wall thickness and systolic function are normal, with an EF greater than 55%. 4. The right ventricle is normal in size and function. 5. The left atrium is mildly dilated. 6. The right atrium is normal in size. 7. Interatrial and interventricular septum intact. 8. The aortic valve is trileaflet, and appears structurally normal. No aortic stenosis or regurgitati on. 9. Normal appearing mitral valve. 10. Trace tricuspid regurgitation present. 11. There is no evidence of pulmonary hypertension. 12. The pulmonic valve is normal. 13. The aortic root, ascending aorta and aortic arch are normal. 14. Normal inferior vena cava with normal inspiratory collapse consistent with estimated right atrial pressure of 5 mmHg. 15. The pericardium is normal. ICT TEACHER: Ryan Trent RDCS
== END 2019-03-21 17:30 ==
LOC: EC 17:46 → 1SOBS 20:24
PROVIDERS: ADMIT Family Medicine; ATTEND Family Medicine
DX: I20.0 Unstable angina (principal); I10 Essential (primary) hypertension; E11.9 Type 2 diabetes mellitus without complications; E78.5 Hyperlipidemia, unspecified; E03.9 Hypothyroidism, unspecified; E66.01 Morbid (severe) obesity due to excess calories; Z68.36 Body mass index [BMI] 36.0-36.9, adult; M79.604 Pain in right leg; R00.0 Tachycardia, unspecified; R07.2 Precordial pain; Z90.49 Acquired absence of other specified parts of digestive tract; Z79.82 Long term (current) use of aspirin; Z79.84 Long term (current) use of oral hypoglycemic drugs; Z79.899 Other long term (current) drug therapy; Z87.891 Personal history of nicotine dependence; Z82.49 Family history of ischemic heart disease and other diseases of the circulatory system; Z83.3 Family history of diabetes mellitus; Z82.3 Family history of stroke
CPT/HCPCS: 96366 ×2; 96376 ×2; 96365; 99291; 36415; 93005; 93306; 93458; 83880; 80061; 80053; 83690; 83735; 84484 ×2; 85025; 85049 ×2; 85610; 85730 ×3; 71046; 93970; G0378 ×3; C1769 ×2; C1894; J1644 ×4; J2001; J3010; Q9967; J2250

== ENCOUNTER → 2019-07-04 | Outpatient (CLI) | payer BC ==
--- NOTE | 2019-07-04 15:07 | XR ---
EXAMINATION TYPE: XR cervical spine limited DATE OF EXAM: 07/04/2019 TECHNIQUE: Frontal, lateral and open mouth view of the cervical spine are obtained. HISTORY: M54.2 M99.01 chronic neck pain new reticular but the COMPARISON: None FINDINGS: The cervical spine is visualized in its entirety from C1 thru the top of T1 level, it is s atisfactory in alignment without evidence of acute fracture or dislocation. The pre-vertebral soft t issue appears within normal limits. The C1-C2 articulation is within normal limits on the open mouth view. Multilevel uncovertebral hypertrophy is seen as well as intervertebral disc space narrowing wi th few anterior osteophytes. Straightening of usual cervical lordosis. IMPRESSION: 1. No acute fracture or malalignment is seen in the cervical spine. 2. Straightening of the usual cervical lordosis, which may be on the basis of muscular sprain/spasm o r patient positioning. 3. Moderate multilevel degenerative disc disease of the cervical spine.
== END | disposition home or self-care (01) ==
LOC: RADXRMAIN 13:27
PROVIDERS: ATTEND Chiropractor
DX: M50.30 Other cervical disc degeneration, unspecified cervical region (principal); G89.29 Other chronic pain
CPT/HCPCS: 72040

== ENCOUNTER → 2019-09-05 | Outpatient (CLI) | payer BC ==
--- NOTE | 2019-09-06 08:42 | XR ---
EXAMINATION TYPE: XR chest 2V DATE OF EXAM: 09/05/2019 COMPARISON: 03/19/2019 HISTORY: Cough and congestion for 2 months TECHNIQUE: Frontal and lateral views of the chest are obtained. FINDINGS: There is no focal air space opacity, pleural effusion, or pneumothorax seen. The cardiac silhouette size is within normal limits. Minimal multilevel degenerative change of the spine. The os seous structures are intact. Cholecystectomy clips are present. IMPRESSION: No acute cardiopulmonary process.
== END | disposition home or self-care (01) ==
LOC: RADXRMAIN 16:36
PROVIDERS: ATTEND Family Medicine
DX: R05 Cough (principal); R09.89 Other specified symptoms and signs involving the circulatory and respiratory systems
CPT/HCPCS: 71046

== ENCOUNTER → 2019-09-13 | Outpatient (CLI) | payer BC ==
--- NOTE | 2019-09-13 11:31 | MM ---
Reason for exam: additional evaluation requested from abnormal screening. Last mammogram was performed less than 1 month ago. History: Patient is postmenopausal. Took estrogen for 1 month. Took progesterone for 1 month. Physical Findings: Nurse did not find any significant physical abnormalities on exam. MG 3D Work Up W/Cad NELLY Bilateral spot compression CC, spot compression MLO, and LM view(s) were taken. Prior study comparison: September 10, 2019, bilateral MG 3d screening mammo w/cad. November 07, 2008, bilateral diagnostic digital mammog. The breast tissue is heterogeneously dense. This may lower the sensitivity of mammography. Left upper outer quadrant focal asymmetry also improves but does persist. Right upper outer quadrant distortion is most pronounced on LM view. Improves on spot views. Precautionary ultrasound. These results were verbally communicated with the patient and result sheet given to the patient on 09/13/19. ASSESSMENT: Incomplete: need additional imaging evaluation, BI-RAD 0 RECOMMENDATION: Ultrasound of both breasts. (upper outer quadrant)
--- NOTE | 2019-09-13 11:33 | USB ---
Reason for exam: additional evaluation requested from abnormal screening. History: Patient is postmenopausal. Took estrogen for 1 month. Took progesterone for 1 month. US Breast Workup Limited NELLY Left limited breast ultrasound including focal area of concern, retroareolar and axilla demonstrates a 1.1 x 0.6 x 1.1cm oval, solid lesion at 2 o'clock, could represent lobe extension versus complicated cyst, benign, corresponds with left mammogram. Right limited breast ultrasound including focal area of concern, retroareolar and axilla demonstrates no cystic or solid lesion seen. These results were verbally communicated with the patient and result sheet given to the patient on 09/13/19. ASSESSMENT: Probably benign, BI-RAD 3 RECOMMENDATION: Follow-up diagnostic mammogram of the right breast in 6 months.
== END | disposition home or self-care (01) ==
LOC: RADMAMWWP 09:13
PROVIDERS: ATTEND Obstetrics & Gynecology
DX: R92.8 Other abnormal and inconclusive findings on diagnostic imaging of breast (principal)
CPT/HCPCS: 77062; 77066

== ENCOUNTER → 2020-02-20 | Outpatient (CLI) | payer OTHER ==
[2020-02-20 18:44] LABS: T4, Free (Free Thyroxine) 0.9 ng/dL (0.80-1.80)
[2020-02-24 16:36] LABS: Normetanephrine, Free 53 pg/mL (< OR = 148); Total, Free (MN + NMN) 53 pg/mL (< OR = 205)
== END | disposition home or self-care (01) ==
LOC: LABWHC1 12:38
PROVIDERS: ATTEND Internal Medicine Endocrinology, Diabetes & Metabolism
DX: R23.2 Flushing (principal)
CPT/HCPCS: 36415; 82384; 83835; 84439; 84443; 86376

== ENCOUNTER → 2020-03-05 | Outpatient (CLI) | payer OTHER ==
[~2020-03-05] MED LIST: SODIUM CHLORIDE 0.9% 500 ML 500 ML in EMPTY BAG 1 BAG IV PRN
[2020-03-05 08:55] VITALS: BP 152/80; PULSE 86; RESP 16; TEMP 98.4
[2020-03-11 19:36] LABS: Metanephrine, Free <25 pg/mL (< OR = 57); Normetanephrine, Free 34 pg/mL (< OR = 148); Total, Free (MN + NMN) 34 pg/mL (< OR = 205)
== END | disposition home or self-care (01) ==
LOC: PROCWHC3 08:20
PROVIDERS: ATTEND Internal Medicine Endocrinology, Diabetes & Metabolism
DX: R23.2 Flushing (principal)
CPT/HCPCS: 36415; 82384; 83835

== ENCOUNTER → 2020-03-14 | Outpatient (CLI) | payer OTHER ==
--- NOTE | 2020-03-14 13:49 | MM ---
Reason for exam: follow-up at short interval from prior study. Last mammogram was performed 6 months ago. History: Patient is postmenopausal. Took estrogen for 1 month. Took progesterone for 1 month. Physical Findings: Nurse did not find any significant physical abnormalities on exam. MG 3D Diag Mammo W/Cad RT CC and MLO view(s) were taken of the right breast. Prior study comparison: September 13, 2019, bilateral MG 3d work up w/cad NELLY. September 10, 2019, bilateral MG 3d screening mammo w/cad. The breast tissue is heterogeneously dense. This may lower the sensitivity of mammography. There is no discrete abnormality including area of concern. These results were verbally communicated with the patient and result sheet given to the patient on 03/14/20. ASSESSMENT: Benign, BI-RAD 2 RECOMMENDATION: Return to routine screening mammogram schedule for both breasts.
== END | disposition home or self-care (01) ==
LOC: RADMAMWWP 12:40
PROVIDERS: ATTEND Obstetrics & Gynecology
DX: R92.8 Other abnormal and inconclusive findings on diagnostic imaging of breast (principal)
CPT/HCPCS: 77065; G0279; 77061

== ENCOUNTER → 2020-09-17 | Outpatient (CLI) | payer OTHER ==
[2020-09-17 15:45] LABS: African American GFR (CKD) 96.2 (60.0-200.0); Albumin 4.3 g/dL (3.80-4.90); Albumin/Globulin Ratio 1.72 (1.60-3.17); Anion Gap 6.9 mmol/L (4.00-12.00); BUN/Creat Ratio 21.25 Ratio (12.00-20.00); Calcium 9.2 mg/dL (8.7-10.3); Carbon Dioxide 28.1 mmol/L (21.6-31.8); Chol/HDL Ratio 3.98; Globulin 2.5 g/dL (1.6-3.3); Potassium 4.1 mmol/L (3.5-5.5); Total Bilirubin 0.5 mg/dL (0.2-1.2); Total Protein 6.8 g/dL (6.2-8.2)
[2020-09-17 18:33] LABS: Urine Creatinine 141.5 mg/dL
[2020-09-17 18:46] LABS: Hemoglobin A1C 6.5 % (4.0-6.0)
== END | disposition home or self-care (01) ==
LOC: LABWHC1 08:47
PROVIDERS: ATTEND Internal Medicine Endocrinology, Diabetes & Metabolism
DX: E11.65 Type 2 diabetes mellitus with hyperglycemia (principal)
CPT/HCPCS: 36415; 80053; 80061; 82043; 82570; 83036; 84443

== ENCOUNTER → 2020-10-01 | Outpatient (CLI) | payer OTHER ==
--- NOTE | 2020-10-02 13:48 | MM ---
Reason for exam: screening (asymptomatic). Last mammogram was performed 7 months ago. History: Patient is postmenopausal. Taking estrogen for 1 year 1 month. Taking progesterone for 1 year 1 month. Physical Findings: A clinical breast exam by your physician is recommended on an annual basis and results should be correlated with mammographic findings. MG Screening Mammo w CAD Bilateral CC and MLO view(s) were taken. Prior study comparison: March 14, 2020, right breast MG 3d diag mammo w/cad RT. September 10, 2019, bilateral MG 3d screening mammo w/cad. There are scattered fibroglandular densities. Focal asymmetry left upper outer quadrant. No significant changes when compared with prior studies. ASSESSMENT: Benign, BI-RAD 2 RECOMMENDATION: Routine screening mammogram of both breasts in 1 year.
== END | disposition home or self-care (01) ==
LOC: RADMAMWWP 16:03
PROVIDERS: ATTEND Obstetrics & Gynecology
DX: Z12.31 Encounter for screening mammogram for malignant neoplasm of breast (principal)
CPT/HCPCS: 77067

== ENCOUNTER 2020-12-04 13:07 | Inpatient (IN) | payer MEDICAID, OTHER ==
[2020-12-04] MEDS ORDERED: ACETAMINOPHEN TAB 500 MG TAB PO STA (13:34)
[2020-12-04] MEDS: DEXAMETHASONE SOD PHOSPHATE 10 MG/ML 1 ML VIAL IV SCH (14:09)
[2020-12-04 14:15] LABS: Basophils % (A) 1 %; Eosinophils % (A) 1 %; HCT 43.3 % (34.0-46.0); Lymphocytes % (A) 19 %; MCH 29.2 pg (25.0-35.0); MCHC 34.7 g/dL (31.0-37.0); Mean Platelet Volume 6.3; Monocytes # (A) 0.2 k/uL (0-1.0); Monocytes % (A) 3 %; Neutrophils # (A) 3.9 k/uL (1.3-7.7); Neutrophils % (A) 76 %; Platelet Count 297 k/uL (150-450); RBC 5.15 m/uL (3.80-5.40); RDW 13.9 % (11.5-15.5); WBC 5.2 k/uL (3.8-10.6)
--- NOTE | 2020-12-04 14:17 | XR ---
EXAMINATION TYPE: XR chest 1V portable DATE OF EXAM: 12/04/2020 COMPARISON: 620 INDICATION: Fever chills short of breath TECHNIQUE: Single frontal view of the chest is obtained. FINDINGS: The heart size is normal. The pulmonary vasculature is normal. There is mild patchy infiltrates within the periphery of the lung bases. Findings can be compatible w ith atypical pneumonia IMPRESSION: 1. Patchy peripheral and basilar infiltrate can be compatible with atypical pneumonia.
[2020-12-04 14:32] LABS: D-Dimer 0.57 mg/L FEU (<0.60); Partial Thromboplastin Time 28.3 sec (22.0-30.0); Prothrombin Time 10.4 sec (9.0-12.0)
[2020-12-04 15:15] LABS: ALT 31 U/L (4-34); AST 42 U/L (14-36); African American GFR (CKD) >90 (>60 ml/min/1.73 sqM); Albumin 3.6 g/dL (3.5-5.0); Alkaline Phosphatase 91 U/L (38-126); Anion Gap 11 mmol/L; Blood Urea Nitrogen 15 mg/dL (7-17); Calcium 8.3 mg/dL (8.4-10.2); Carbon Dioxide 22 mmol/L (22-30); Chloride 97 mmol/L (98-107); Glucose 113 mg/dL (74-99); LDH 541 U/L (313-618); Magnesium 1.7 mg/dL (1.6-2.3); Non-African American GFR(CKD) >90 (>60 ml/min/1.73 sqM); Potassium 4.2 mmol/L (3.5-5.1); Sodium 130 mmol/L (137-145); Total Bilirubin 0.5 mg/dL (0.2-1.3); Total Protein 6.8 g/dL (6.3-8.2)
--- NOTE | 2020-12-04 15:30 | ED ---
SOB HPI - General Chief Complaint: Shortness of Breath Stated Complaint: SOB Time Seen by Provider: 12/04/20 13:23 Source: patient Mode of arrival: EMS Limitations: no limitations - History of Present Illness Initial Comments: Is a 55-year-old female with a history of diabetes, hypertension, hyperlipidemia presents emergency department for 6 days worth of fevers, chills, shortness of breath, cough, generalized body aches. She states that she did test positive for Covid over the weekend. She states that she's been progressively getting more short of breath. She denies any chest pains area she admits to diarrhea however no nausea or vomiting. EMS picked her up and she was found to be hypoxic on room air. She was placed on a few liters with improvement in her oxygen saturations. - Related Data Home Medications Medication Instructions Recorded Confirmed Aspirin [Adult Low Dose Aspirin EC] 81 mg PO HS 03/19/19 12/04/20 Atorvastatin [Lipitor] 40 mg PO HS 03/19/19 12/04/20 Ergocalciferol [Vitamin D2] 50,000 unit PO Q7D 03/05/20 12/04/20 Levothyroxine Sodium [Synthroid] 25 mcg PO DAILY 03/05/20 12/04/20 Losartan Potassium [Cozaar] 25 mg PO DAILY 03/05/20 12/04/20 Triamterene/Hydrochlorothiazid 1 tab PO DAILY 03/05/20 12/04/20 [Triamterene-Hctz 37.5-25 mg Tb] metFORMIN HCL 1,000 mg PO BID 03/05/20 12/04/20 Acetaminophen Tab [Tylenol Tab] 1,000 mg PO Q4H PRN 12/04/20 12/04/20 Amberen Otc 2 cap PO DAILY PRN 12/04/20 12/04/20 Dextroamphetamine/Amphetamine 10 mg PO BID 12/04/20 12/04/20 [Adderall] Ertugliflozin Pidolate [Steglatro] 5 mg PO DAILY 12/04/20 12/04/20 Shaan Moreno ([place] Strength) 1 cap PO DAILY 12/04/20 12/04/20 Multivit with Calcium,Iron,Min 2 tab PO DAILY 12/04/20 12/04/20 [Women's Multivitamin] Allergies Allergy/AdvReac Type Severity Reaction Status Date / Time No Known Allergies Allergy Verified 12/04/20 13:13 Review of Systems ROS Statement: Those systems with pertinent positive or pertinent negative responses have been documented in the HPI. ROS Other: All systems not noted in ROS Statement are negative. Past Medical History Past Medical History: Diabetes Mellitus, Hyperlipidemia, Hypertension, Thyroid Disorder Additional Past Medical History / Comment(s): DM diagnosed 10/2018 History of Any Multi-Drug Resistant Organisms: None Reported Past Surgical History: Cholecystectomy, Orthopedic Surgery, Tubal Ligation Additional Past Surgical History / Comment(s): carpal tunnel, trigger finger, ri ght knee surgery Past Anesthesia/Blood Transfusion Reactions: No Reported Reaction Past Psychological History: No Psychological Hx Reported Smoking Status: Former smoker Past Alcohol Use History: None Reported Past Drug Use History: None Reported - Past Family History Father Family Medical History: AFIB, CVA/TIA, Hypertension Mother Family Medical History: Diabetes Mellitus, Hypertension Sister(s) Family Medical History: Hypertension Brother(s) Family Medical History: Hypertension General Exam - General Exam Comments Initial Comments: Constitutional: Awake alert Appears comfortable Head: Normocephalic atraumatic Eyes: no conjunctival injection No scleral icterus EOMI Neck: No JVD Supple Heart: Regular rate rhythm normal S1-S2 no murmurs Lungs: TachypneaNo wheezing No rales Abdomen: Soft nondistended nontender Extremities: Non edematous DP pulses intact Radial pulses intact Neuro: A&Ox3 No focal neurologic deficits Psych: Appropriate mood and affect Limitations: no limitations Course Vital Signs 12/04/20 12/04/20 12/04/20 13:13 13:23 14:27 Temperature 102.6 F H 100.8 F H Pulse Rate 105 H 100 Respiratory 22 20 Rate Blood Pressure 152/73 120/70 O2 Sat by Pulse 90 L 89 L 91 L Oximetry 12/04/20 12/04/20 14:30 15:54 Temperature 98.8 F Pulse Rate 93 Respiratory 20 Rate Blood Pressure 131/77 O2 Sat by Pulse 94 L 92 L Oximetry - Reevaluation(s) Reevaluation #1: EKG showing sinus tachycardia with a rate of 103. No abnormal ST segment changes or T-wave inversions. QTC is 440. Other intervals normal. No ectopy. 12/04/20 15:29 Medical Decision Making - Medical Decision Making Is a 55-year-old female who presents emergency department for shortness of breath. She was hypoxic when EMS arrived at her home. She was satting in the low 90s on 4 L nasal cannula. Blood work was performed and consistent with cold. Chest x-ray showing bilateral infiltrates. D-dimer negative. The patient may be Remdesivir candidate. Dr. Perry was consult for this. Dr. Muñiz accepts the admission. - Lab Data Result diagrams: 12/04/20 13:41 12/04/20 13:41 Lab Results 12/04/20 12/04/20 12/04/20 Range/Units 13:41 13:41 13:41 WBC 5.2 (3.8-10.6) k/uL RBC 5.15 (3.80-5.40) m/uL Hgb 15.0 (11.4-16.0) gm/dL Hct 43.3 (34.0-46.0) % MCV 84.0 (80.0-100.0) fL MCH 29.2 (25.0-35.0) pg MCHC 34.7 (31.0-37.0) g/dL RDW 13.9 (11.5-15.5) % Plt Count 297 (150-450) k/uL MPV 6.3 Neutrophils % 76 % Lymphocytes % 19 % Monocytes % 3 % Eosinophils % 1 % Basophils % 1 % Neutrophils # 3.9 (1.3-7.7) k/uL Lymphocytes # 1.0 (1.0-4.8) k/uL Monocytes # 0.2 (0-1.0) k/uL Eosinophils # 0.0 (0-0.7) k/uL Basophils # 0.0 (0-0.2) k/uL PT 10.4 (9.0-12.0) sec INR 1.0 (<1.2) APTT 28.3 (22.0-30.0) sec D-Dimer 0.57 (<0.60) mg/L FEU Sodium 130 L (137-145) mmol/L Potassium 4.2 (3.5-5.1) mmol/L Chloride 97 L (98-107) mmol/L Carbon Dioxide 22 (22-30) mmol/L Anion Gap 11 mmol/L BUN 15 (7-17) mg/dL Creatinine 0.68 (0.52-1.04) mg/dL Est GFR (CKD-EPI)AfAm >90 (>60 ml/min/1.73 sqM) Est GFR (CKD-EPI)NonAf >90 (>60 ml/min/1.73 sqM) Glucose 113 H (74-99) mg/dL POC Glucose (mg/dL) (75-99) mg/dL POC Glu Green Hide Inspector ID Plasma Lactic Acid Fredis (0.7-2.0) mmol/L Calcium 8.3 L (8.4-10.2) mg/dL Magnesium 1.7 (1.6-2.3) mg/dL Total Bilirubin 0.5 (0.2-1.3) mg/dL AST 42 H (14-36) U/L ALT 31 (4-34) U/L Alkaline Phosphatase 91 (38-126) U/L Lactate Dehydrogenase 541 (313-618) U/L C-Reactive Protein 187.6 H (<10.0) mg/L Total Protein 6.8 (6.3-8.2) g/dL Albumin 3.6 (3.5-5.0) g/dL Coronavirus (PCR) (Not Detectd) 12/04/20 12/04/20 12/04/20 Range/Units 13:41 14:21 16:07 WBC (3.8-10.6) k/uL RBC (3.80-5.40) m/uL Hgb (11.4-16.0) gm/dL Hct (34.0-46.0) % MCV (80.0-100.0) fL MCH (25.0-35.0) pg MCHC (31.0-37.0) g/dL RDW (11.5-15.5) % Plt Count (150-450) k/uL MPV Neutrophils % % Lymphocytes % % Monocytes % % Eosinophils % % Basophils % % Neutrophils # (1.3-7.7) k/uL Lymphocytes # (1.0-4.8) k/uL Monocytes # (0-1.0) k/uL Eosinophils # (0-0.7) k/uL Basophils # (0-0.2) k/uL PT (9.0-12.0) sec INR (<1.2) APTT (22.0-30.0) sec D-Dimer (<0.60) mg/L FEU Sodium (137-145) mmol/L Potassium (3.5-5.1) mmol/L Chloride (98-107) mmol/L Carbon Dioxide (22-30) mmol/L Anion Gap mmol/L BUN (7-17) mg/dL Creatinine (0.52-1.04) mg/dL Est GFR (CKD-EPI)AfAm (>60 ml/min/1.73 sqM) Est GFR (CKD-EPI)NonAf (>60 ml/min/1.73 sqM) Glucose (74-99) mg/dL POC Glucose (mg/dL) 127 H (75-99) mg/dL POC Glu Green Hide Inspector ID Radha Velásquez Plasma Lactic Acid Fredis 0.9 (0.7-2.0) mmol/L Calcium (8.4-10.2) mg/dL Magnesium (1.6-2.3) mg/dL Total Bilirubin (0.2-1.3) mg/dL AST (14-36) U/L ALT (4-34) U/L Alkaline Phosphatase (38-126) U/L Lactate Dehydrogenase (313-618) U/L C-Reactive Protein (<10.0) mg/L Total Protein (6.3-8.2) g/dL Albumin (3.5-5.0) g/dL Coronavirus (PCR) Detected A (Not Detectd) Disposition Clinical Impression: Pneumonia due to COVID-19 virus Disposition: ADMITTED IP TO THIS HOSP Condition: Stable Referrals: Migel Muñiz DO [Primary Care Provider] - 1-2 days
[2020-12-04 15:59] LABS: C Reactive Protein 187.6 mg/L (<10.0)
[2020-12-04] MEDS ORDERED: NALOXONE 0.4 MG/ML 1 ML VIAL IV PRN (16:03)
[2020-12-04 16:08] LABS: Glucose,Whole Blood 127 mg/dL (75-99)
[2020-12-05] MEDS: ACETAMINOPHEN TAB 325 MG TAB PO PRN ×2 (05:08→19:54)
[2020-12-05] MEDS ORDERED: REMDESIVIR 200 MG in SODIUM CHLORIDE 0.9% 250 ML IVPB ONE (10:00)
[2020-12-05] MEDS ORDERED: Magnesium Replacement Protocol 1 EACH MISC MISCELLANE PRN (10:55)
--- NOTE | 2020-12-05 11:03 | P.HPIM ---
History of Present Illness H&P Date: 12/05/20 Chief Complaint: Worsening shortness of breath, + Covid-19 This is a 53-year-old female with a past medical history of hypertension, obesity, diabetes mellitus and multiple other medical issues brought in to the ER via EMS with complaints of worsening of shortness of breath, fevers chills cough and generalized body aches since Thursday. EMS reported hypoxia on room air. Tested positive for Covid over the weekend. Positive Coronavirus PCR. Her mother was hospitalized last week for COVID. Denies any chest pain, palpitations. EKG reported sinus tachycardia. Reports diarrhea and sometimes constipation, but denies nausea or vomiting. T-max 102.6, mild tachycardia. Requiring 4 L nasal cannula to maintain O2 sats in the mid 90s. Hematology, coagulation panels unremarkable. Sodium 1:30, potassium 5.2, bicarb 22, BUN 15, creatinine 0.68, glucose 127, magnesium 1.7, ferritin pending AST 42, CRP 187.6, pro calcitonin 0.11, mildly elevated. Chest x-ray reporting patchy peripheral and basilar infiltrates compatible with atypical pneumonia .Covid regimen initiated. Pulmonary consulted. Review of Systems ROS Statement: Those systems with pertinent positive or pertinent negative responses have been documented in the HPI. ROS Other: All systems not noted in ROS Statement are negative. Past Medical History Past Medical History: Diabetes Mellitus, Hyperlipidemia, Hypertension, Thyroid Disorder Additional Past Medical History / Comment(s): DM diagnosed 10/2018 History of Any Multi-Drug Resistant Organisms: None Reported Past Surgical History: Cholecystectomy, Orthopedic Surgery, Tubal Ligation Additional Past Surgical History / Comment(s): carpal tunnel, trigger finger, right knee surgery Past Anesthesia/Blood Transfusion Reactions: No Reported Reaction Past Psychological History: No Psychological Hx Reported Smoking Status: Former smoker Past Alcohol Use History: None Reported Past Drug Use History: None Reported - Past Family History Father Family Medical History: AFIB, CVA/TIA, Hypertension Mother Family Medical History: Diabetes Mellitus, Hypertension Sister(s) Family Medical History: Hypertension Brother(s) Family Medical History: Hypertension Medications and Allergies Home Medications Medication Instructions Recorded Confirmed Type Aspirin [Adult Low Dose Aspirin EC] 81 mg PO HS 03/19/19 12/04/20 History Atorvastatin [Lipitor] 40 mg PO HS 03/19/19 12/04/20 History Ergocalciferol [Vitamin D2] 50,000 unit PO Q7D 03/05/20 12/04/20 History Levothyroxine Sodium [Synthroid] 25 mcg PO DAILY 03/05/20 12/04/20 History Losartan Potassium [Cozaar] 25 mg PO DAILY 03/05/20 12/04/20 History Triamterene/Hydrochlorothiazid 1 tab PO DAILY 03/05/20 12/04/20 History [Triamterene-Hctz 37.5-25 mg Tb] metFORMIN HCL 1,000 mg PO BID 03/05/20 12/04/20 History Acetaminophen Tab [Tylenol Tab] 1,000 mg PO Q4H PRN 12/04/20 12/04/20 History Amberen Otc 2 cap PO DAILY PRN 12/04/20 12/04/20 History Dextroamphetamine/Amphetamine 10 mg PO BID 12/04/20 12/04/20 History [Adderall] Ertugliflozin Pidolate [Steglatro] 5 mg PO DAILY 12/04/20 12/04/20 History Shaan Moreno ([place] Strength) 1 cap PO DAILY 12/04/20 12/04/20 History Multivit with Calcium,Iron,Min 2 tab PO DAILY 12/04/20 12/04/20 History [Women's Multivitamin] Allergies Allergy/AdvReac Type Severity Reaction Status Date / Time No Known Allergies Allergy Verified 12/04/20 13:13 Physical Exam Vitals: Vital Signs Temp Pulse Resp BP Pulse Ox 12/05/20 06:39 100.9 F H 85 18 125/85 95 12/05/20 00:30 99.8 F H 87 16 133/76 90 L 12/04/20 15:54 98.8 F 93 20 131/77 92 L 12/04/20 14:30 94 L 12/04/20 14:27 100.8 F H 100 20 120/70 91 L 12/04/20 13:23 89 L 12/04/20 13:13 102.6 F H 105 H 22 152/73 90 L GEN. APPEARANCE: alert, sitting up on stretcher, respiratory effort increased HEAD EXAM: atraumatic, normocephalic, normal inspection EYE EXAM: No pallor. No icterus NECK EXAM: No thyromegaly. No lymphadenopathy. RESPIRATORY EXAM: Bilateral breath sounds are positive. Tachypneic. No wheeze or crackles. CARDIOVASCULAR EXAM: S1 and S2 heard. Tachycardic. GI/ABDOMINAL EXAM: Abdomen is soft nontender. Normal bowel sounds. No palpable masses, no guarding. EXTREMITIES EXAM: No peripheral edema. NEUROLOGICAL EXAM: alert, oriented X3, no focal neurological deficits. PSYCHIATRIC EXAM: normal affect, normal mood SKIN EXAM: warm, dry, intact, normal color. Absent: rash Results CBC & Chem 7: 12/04/20 13:41 12/04/20 13:41 Labs: Abnormal Lab Results - Last 24 Hours (Table) 12/04/20 12/04/20 12/04/20 Range/Units 13:41 13:41 14:21 Sodium 130 L (137-145) mmol/L Chloride 97 L (98-107) mmol/L Glucose 113 H (74-99) mg/dL POC Glucose (mg/dL) (75-99) mg/dL Calcium 8.3 L (8.4-10.2) mg/dL AST 42 H (14-36) U/L C-Reactive Protein 187.6 H (<10.0) mg/L Procalcitonin 0.11 H (0.02-0.09) ng/mL Coronavirus (PCR) Detected A (Not Detectd) 12/04/20 Range/Units 16:07 Sodium (137-145) mmol/L Chloride (98-107) mmol/L Glucose (74-99) mg/dL POC Glucose (mg/dL) 127 H (75-99) mg/dL Calcium (8.4-10.2) mg/dL AST (14-36) U/L C-Reactive Protein (<10.0) mg/L Procalcitonin (0.02-0.09) ng/mL Coronavirus (PCR) (Not Detectd) Assessment and Plan Assessment: Acute COVID-19 pneumonia Diabetes mellitus type 2 Hypertension Hyperlipidemia Hypothyroidism Obesity, BMI 32.1 Plan: Continue on current medication regime ,monitoring and symptomatic treatm ent. Covid cocktail initiated. Pulmonary consult in place-Remdesevir pending. Hemoglobin A1c ordered. Prognosis guarded Multiple complex medical issues. The impression and plan of care has been dictated as directed. : I performed a history and examination of this patient, discussed the same with the dictator. I agree with the dictator's note ,documented as a scribe. Any additional findings or plans will be noted.
[2020-12-05] MEDS: LEVOTHYROXINE 25 MCG TAB PO SCH (11:09)
[2020-12-05] MEDS: ZINC SULFATE 220 MG CAP PO SCH (11:09)
[2020-12-05] MEDS: LOSARTAN 25 MG TAB PO SCH (11:09)
[2020-12-05] MEDS: ASCORBIC ACID 500 MG TAB PO SCH ×2 (11:09→21:44)
[2020-12-05] MEDS: DEXAMETHASONE SOD PHOSPHATE 10 MG/ML 1 ML VIAL IV SCH (11:09)
[2020-12-05] MEDS: ENOXAPARIN 40 MG/0.4 ML SYRINGE SQ SCH (11:10)
[2020-12-05 11:48] LABS: Glucose,Whole Blood 196 mg/dL (75-99)
[2020-12-05] MEDS: INSULIN ASPART (NovoLOG) 100 UNIT/ML VIAL SQ SCH ×6 (11:53→21:42)
--- NOTE | 2020-12-05 12:50 | P.CNPUL ---
History of Present Illness Consult date: 12/05/20 Requesting physician: Charles Steve Reason for consult: dyspnea, cough, hypoxemia, abnormal CXR/CT Chief complaint: Cough, shortness of breath, headache, COVID 19, hypoxia History of present illness: This is a 55-year-old white female patient with past mental history of hypertension, diabetes mellitus type 2, hyperlipidemia, hypothyroidism, former smoker, who presented to the emergency department on 12/04/2020 with complaints of worsening cough, dyspnea. Patient had the [facility] out at her residence yesterday because she was scheduled to receive Bamlavinimab there was prescribed by Dr. Muñiz her PCP. Patient had positive with test on 12/02/2020 weights she went through the drive-through at the [place] [facility] that offered drive-through COVID 19 testing. She had a positive rapid COVID 19 PCR. First onset of symptoms was last Thursday which was 11/30/2020 with a sore throat, headaches, pins and needles sensation, and gradually patient developed shortness of breath and cough. However when the EMS came out to her residence to administer Bamlavinimab, patient was found to be hypoxic with a pulse ox in the 80s and at that point she was brought into the emergency department for further evaluation and treatment, as she was no longer a candidate for BAM. Chest x-ray in the emergency department showed patchy perihilar and basilar infiltrates compatible with COVID 19 pneumonia, patient is currently requiring 5 L of oxygen per pulse ox is 91-95%, she continues to be febrile, she continues to have a dry cough. She has been ambulating to the bathroom, and does have exertional dyspnea, but no acute distress, hemodynamically she is stable. She reports some nausea and diarrhea but no vomiting. Patient has been started on prophylactic Lovenox, vitamins, and Decadron 6 mg daily. D-dimer 0.57, sodium is 1:30, potassium is 4.2, chloride is 97, BUN is 15, creatinine 0.68, AST is 42, ALT is 31, alkaline phosphatase 91, LDH is 541, CRP is 187.6, pro calcitonin is 0.11. Repeat COVID 19 PCR was positive on 12/04/2020 Review of Systems All systems: negative Constitutional: Denies chills, Denies fever Eyes: denies blurred vision, denies pain Ears, nose, mouth and throat: Denies headache, Denies sore throat Cardiovascular: Denies chest pain, Denies shortness of breath Respiratory: Reports dyspnea, Denies cough Gastrointestinal: Denies abdominal pain, Denies diarrhea, Denies nausea, Denies vomiting Genitourinary: Denies dysuria, Denies hematuria Musculoskeletal: Denies myalgias Integumentary: Denies pruritus, Denies rash Neurological: Denies numbness, Denies weakness Psychiatric: Denies anxiety, Denies depression Endocrine: Denies fatigue, Denies weight change Past Medical History Past Medical History: Diabetes Mellitus, Hyperlipidemia, Hypertension, Thyroid Disorder Additional Past Medical History / Comment(s): DM diagnosed 10/2018 History of Any Multi-Drug Resistant Organisms: None Reported Past Surgical History: Cholecystectomy, Orthopedic Surgery, Tubal Ligation Additional Past Surgical History / Comment(s): carpal tunnel, trigger finger, right knee surgery Past Anesthesia/Blood Transfusion Reactions: No Reported Reaction Past Psychological History: No Psychological Hx Reported Smoking Status: Former smoker Past Alcohol Use History: None Reported Past Drug Use History: None Reported - Past Family History Father Family Medical History: AFIB, CVA/TIA, Hypertension Mother Family Medical History: Diabetes Mellitus, Hypertension Sister(s) Family Medical History: Hypertension Brother(s) Family Medical History: Hypertension Medications and Allergies Home Medications Medication Instructions Recorded Confirmed Type Aspirin [Adult Low Dose Aspirin EC] 81 mg PO HS 03/19/19 12/04/20 History Atorvastatin [Lipitor] 40 mg PO HS 03/19/19 12/04/20 History Ergocalciferol [Vitamin D2] 50,000 unit PO Q7D 03/05/20 12/04/20 History Levothyroxine Sodium [Synthroid] 25 mcg PO DAILY 03/05/20 12/04/20 History Losartan Potassium [Cozaar] 25 mg PO DAILY 03/05/20 12/04/20 History Triamterene/Hydrochlorothiazid 1 tab PO DAILY 03/05/20 12/04/20 History [Triamterene-Hctz 37.5-25 mg Tb] metFORMIN HCL 1,000 mg PO BID 03/05/20 12/04/20 History Acetaminophen Tab [Tylenol Tab] 1,000 mg PO Q4H PRN 12/04/20 12/04/20 History Amberen Otc 2 cap PO DAILY PRN 12/04/20 12/04/20 History Dextroamphetamine/Amphetamine 10 mg PO BID 12/04/20 12/04/20 History [Adderall] Ertugliflozin Pidolate [Steglatro] 5 mg PO DAILY 12/04/20 12/04/20 History Shaan Moreno ([place] Strength) 1 cap PO DAILY 12/04/20 12/04/20 History Multivit with Calcium,Iron,Min 2 tab PO DAILY 12/04/20 12/04/20 History [Women's Multivitamin] Allergies Allergy/AdvReac Type Severity Reaction Status Date / Time No Known Allergies Allergy Verified 12/04/20 13:13 Physical Exam Vitals: Vital Signs Temp Pulse Resp BP Pulse Ox 12/05/20 11:39 100.4 F H 96 20 135/75 91 L 12/05/20 06:39 100.9 F H 85 18 125/85 95 12/05/20 00:30 99.8 F H 87 16 133/76 90 L 12/04/20 15:54 98.8 F 93 20 131/77 92 L 12/04/20 14:30 94 L 12/04/20 14:27 100.8 F H 100 20 120/70 91 L 12/04/20 13:23 89 L 12/04/20 13:13 102.6 F H 105 H 22 152/73 90 L GENERAL EXAM: Alert, pleasant, 55-year-old white female, on 5 L of oxygen a pulse ox of 91% comfortable in no apparent distress. HEAD: Normocephalic/atraumatic. EYES: Normal reaction of pupils, equal size. Conjunctiva pink, sclera white. NOSE: Clear with pink turbinates. THROAT: No erythema or exudates. NECK: No masses, no JVD, no thyroid enlargement, no adenopathy. CHEST: No chest wall deformity. Symmetrical expansion. LUNGS: Equal air entry with bilateral crackles CVS: Regular rate and rhythm, normal S1 and S2, no gallops, no murmurs, no rubs ABDOMEN: Soft, nontender. No hepatosplenomegaly, normal bowel sounds, no guarding or rigidity. EXTREMITIES: No clubbing, no edema, no cyanosis, 2+ pulses and upper and lower extremities. MUSCULOSKELETAL: Muscle strength and tone normal. SPINE: No scoliosis or deformity SKIN: No rashes CENTRAL NERVOUS SYSTEM: Alert and oriented -3. No focal deficits, tone is normal in all 4 extremities. PSYCHIATRIC: Alert and oriented -3. Appropriate affect. Intact judgment and insight. Results - Laboratory Findings CBC and BMP: 12/04/20 13:41 12/04/20 13:41 PT/INR, D-dimer PT 10.4 sec (9.0-12.0) 12/04/20 13:41 INR 1.0 (<1.2) 12/04/20 13:41 D-Dimer 0.57 mg/L FEU (<0.60) 12/04/20 13:41 Abnormal lab findings: Abnormal Labs 12/04/20 12/04/20 12/04/20 13:41 13:41 14:21 Sodium 130 L Chloride 97 L Glucose 113 H POC Glucose (mg/dL) Calcium 8.3 L AST 42 H C-Reactive Protein 187.6 H Procalcitonin 0.11 H Coronavirus (PCR) Detected A 12/04/20 12/05/20 16:07 11:38 Sodium Chloride Glucose POC Glucose (mg/dL) 127 H 196 H Calcium AST C-Reactive Protein Procalcitonin Coronavirus (PCR) - Diagnostic Findings Chest x-ray: report reviewed, image reviewed Additional studies: Sinus tach EKG Assessment and Plan Plan: Assessment: #1. Acute hypoxic respiratory failure related to acute COVID 19 pneumonitis, with onset of symptoms on 11/30/2020, positive outpatient COVID 19 PCR test on 12/02/2020, patient will be started on Remdesivir #2. Increased inflammatory markers related to the above #3. Hyponatremia likely hypovolemic related to decreased oral intake, diarrhea, nausea #4. Recent exposure to her mother who is currently hospitalized with COVID 19 pneumonia #5. Hypertension #6. Hyperlipidemia #7. Diabetes mellitus #8. Obesity with BMI of 32.1 kg/m Plan: Continue current medical treatment, continue Decadron, continue prophylactic Lovenox, patient is within the window for Remdesivir, she'll be started on it today, continue with vitamins, continue monitoring her clinical course closely, follow-up d-dimer and inflammatory markers in the morning, monitor for signs of worsening dyspnea and hypoxemia. I performed a history & physical examination of the patient and discussed their management with my nurse practitioner, Isatu Carrillo. I reviewed the nurse practitioner's note and agree with the documented findings and plan of care. Lung sounds are positive for bibasilar crackles. The findings and the impression was discussed with the patient. I attest to the documentation by the nurse practitioner. Time with Patient: Greater than 30
[2020-12-05 17:16] LABS: Glucose,Whole Blood 207 mg/dL (75-99)
[2020-12-05] MEDS: metFORMIN 500 MG TAB PO SCH (17:50)
[2020-12-05 21:04] LABS: Glucose,Whole Blood 129 mg/dL (75-99)
[2020-12-05] MEDS: NON FORMULARY DRUG (Dextroamphetamine/Amphetamine [Adderall] 10 MG Tablet) PO SCH (21:42)
[2020-12-06] MEDS: ACETAMINOPHEN TAB 325 MG TAB PO PRN ×2 (04:10→19:49)
[2020-12-06] MEDS: LEVOTHYROXINE 25 MCG TAB PO SCH (05:58)
[2020-12-06 06:22] LABS: Basophils % (A) 0 %; Eosinophils % (A) 0 %; HCT 42.6 % (34.0-46.0); HGB 14.9 gm/dL (11.4-16.0); Lymphocytes # (A) 1.7 k/uL (1.0-4.8); Lymphocytes % (A) 20 %; MCH 29.2 pg (25.0-35.0); MCHC 34.9 g/dL (31.0-37.0); MCV 83.7 fL (80.0-100.0); Mean Platelet Volume 6.4; Monocytes # (A) 0.3 k/uL (0-1.0); Monocytes % (A) 3 %; Neutrophils # (A) 6.4 k/uL (1.3-7.7); Neutrophils % (A) 75 %; Platelet Count 371 k/uL (150-450); RBC 5.09 m/uL (3.80-5.40); RDW 13.8 % (11.5-15.5); WBC 8.5 k/uL (3.8-10.6)
[2020-12-06 06:53] LABS: ALT 46 U/L (4-34); AST 41 U/L (14-36); African American GFR (CKD) >90 (>60 ml/min/1.73 sqM); Albumin 3.5 g/dL (3.5-5.0); Alkaline Phosphatase 88 U/L (38-126); Anion Gap 10 mmol/L; Blood Urea Nitrogen 16 mg/dL (7-17); Calcium 8.7 mg/dL (8.4-10.2); Carbon Dioxide 23 mmol/L (22-30); Chloride 100 mmol/L (98-107); Glucose 91 mg/dL (74-99); LDH 601 U/L (313-618); Magnesium 1.8 mg/dL (1.6-2.3); Non-African American GFR(CKD) >90 (>60 ml/min/1.73 sqM); Potassium 4.2 mmol/L (3.5-5.1); Sodium 133 mmol/L (137-145); Total Bilirubin 0.4 mg/dL (0.2-1.3); Total Protein 6.6 g/dL (6.3-8.2)
[2020-12-06 07:07] LABS: C Reactive Protein 138.4 mg/L (<10.0)
[2020-12-06 07:33] LABS: Glucose,Whole Blood 104 mg/dL (75-99)
[2020-12-06] MEDS: NON FORMULARY DRUG (Dextroamphetamine/Amphetamine [Adderall] 10 MG Tablet) PO SCH ×2 (07:47→17:20)
[2020-12-06] MEDS: INSULIN ASPART (NovoLOG) 100 UNIT/ML VIAL SQ SCH ×5 (07:47→20:57)
[2020-12-06] MEDS: metFORMIN 500 MG TAB PO SCH ×2 (10:06→17:19)
[2020-12-06] MEDS: ASCORBIC ACID 500 MG TAB PO SCH ×2 (10:06→20:40)
[2020-12-06] MEDS: LOSARTAN 25 MG TAB PO SCH (10:06)
[2020-12-06] MEDS: ENOXAPARIN 40 MG/0.4 ML SYRINGE SQ SCH (10:06)
[2020-12-06] MEDS: ZINC SULFATE 220 MG CAP PO SCH (10:07)
[2020-12-06] MEDS: DEXAMETHASONE SOD PHOSPHATE 10 MG/ML 1 ML VIAL IV SCH (10:07)
[2020-12-06] MEDS: REMDESIVIR 100 MG in SODIUM CHLORIDE 0.9% 250 ML IVPB SCH ×2 (10:07→12:48)
--- NOTE | 2020-12-06 11:31 | P.PN ---
Subjective Progress Note Date: 12/06/20 Principal diagnosis: Cough, shortness of breath, headache, COVID 19, hypoxia This is a 55-year-old white female patient with past mental history of hypertension, diabetes mellitus type 2, hyperlipidemia, hypothyroidism, former smoker, who presented to the emergency department on 12/04/2020 with complaints of worsening cough, dyspnea. Patient had the [facility] EMS out at her residence yesterday because she was scheduled to receive Bamlavinimab there was prescribed by Dr. Muñiz her PCP. Patient had positive with test on 12/02/2020 weights she went through the drive-through at the [facility] that offered drive-through COVID 19 testing. She had a positive rapid COVID 19 PCR. First onset of symptoms was last Thursday which was 11/30/2020 with a sore throat, headaches, pins and needles sensation, and gradually patient developed shortness of breath and cough. However when the EMS came out to her residence to administer Bamlavinimab, patient was found to be hypoxic with a pulse ox in the 80s and at that point she was brought into the emergency department for further evaluation and treatment, as she was no longer a candidate for BAM. Chest x-ray in the emergency department showed patchy perihilar and basilar infiltrates compatible with COVID 19 pneumonia, patient is currently requiring 5 L of oxygen per pulse ox is 91-95%, she continues to be febrile, she continues to have a dry cough. She has been ambulating to the bathroom, and does have exertional dyspnea, but no acute distress, hemodynamically she is stable. She reports some nausea and diarrhea but no vomiting. Patient has been started on prophylactic Lovenox, vitamins, and Decadron 6 mg daily. D-dimer 0.57, sodium is 1:30, potassium is 4.2, chloride is 97, BUN is 15, creatinine 0.68, AST is 42, ALT is 31, alkaline phosphatase 91, LDH is 541, CRP is 187.6, pro calcitonin is 0.11. Repeat COVID 19 PCR was positive on 12/04/2020 On 12/06/2020 patient seen in follow-up on medical floor, she is currently up to 8 L of oxygen, her pulse ox is 86-90%, subsequently FiO2 was increased to 10 L. She states she is feeling a bit better, she slept better last night, still feels short of breath, occasional cough, lung sounds reveal diffuse bilateral crackles, afebrile, hemodynamically stable. No chest pain, today's labs have been reviewed, CBC is within normal limits, d-dimer is 0.5, sodium is 133, dust electrolytes and renal profile within normal limits, AST is 41, ALT is 46, al kaline phosphatase is 88, CRP is down to 138, and LDH is 601, pro calcitonin level was low 0.11. No new chest x-ray. Today is day 2 of Remdesivir, she is on prophylactic dose Lovenox, she is on daily dose of IV dexamethasone 6 mg in addition to vitamins, she states her appetite has improved some, no nausea or vomiting. Objective - Vital Signs Vital signs: Vital Signs Temp 97.8 F 12/06/20 08:00 Pulse 95 12/06/20 08:00 Resp 17 12/06/20 08:00 BP 124/75 12/06/20 08:00 Pulse Ox 86 L 12/06/20 08:00 Intake & Output 12/05/20 12/06/20 12/06/20 18:59 06:59 18:59 Intake Total 300 480 Balance 300 480 Weight 84.822 kg Intake: Oral 300 480 Other: # Voids 1 3 - Exam GENERAL EXAM: Alert, pleasant, 55-year-old white female, on 8 L of oxygen a pulse ox of 90% comfortable in no apparent distress. HEAD: Normocephalic/atraumatic. EYES: Normal reaction of pupils, equal size. Conjunctiva pink, sclera white. NOSE: Clear with pink turbinates. THROAT: No erythema or exudates. NECK: No masses, no JVD, no thyroid enlargement, no adenopathy. CHEST: No chest wall deformity. Symmetrical expansion. LUNGS: Equal air entry with bilateral crackles CVS: Regular rate and rhythm, normal S1 and S2, no gallops, no murmurs, no rubs ABDOMEN: Soft, nontender. No hepatosplenomegaly, normal bowel sounds, no guarding or rigidity. EXTREMITIES: No clubbing, no edema, no cyanosis, 2+ pulses and upper and lower extremities. MUSCULOSKELETAL: Muscle strength and tone normal. SPINE: No scoliosis or deformity SKIN: No rashes CENTRAL NERVOUS SYSTEM: Alert and oriented -3. No focal deficits, tone is normal in all 4 extremities. PSYCHIATRIC: Alert and oriented -3. Appropriate affect. Intact judgment and insight. - Labs CBC & Chem 7: 12/06/20 05:54 12/06/20 05:54 Labs: Abnormal Lab Results - Last 24 Hours (Table) 12/05/20 12/05/20 12/05/20 Range/Units 11:38 17:15 21:01 Sodium (137-145) mmol/L POC Glucose (mg/dL) 196 H 207 H 129 H (75-99) mg/dL AST (14-36) U/L ALT (4-34) U/L C-Reactive Protein (<10.0) mg/L 12/06/20 12/06/20 Range/Units 05:54 07:31 Sodium 133 L (137-145) mmol/L POC Glucose (mg/dL) 104 H (75-99) mg/dL AST 41 H (14-36) U/L ALT 46 H (4-34) U/L C-Reactive Protein 138.4 H (<10.0) mg/L Microbiology - Last 24 Hours (Table) 12/04/20 16:00 Blood Culture - Preliminary Blood No Growth after 24 hours 12/04/20 14:21 Blood Culture - Preliminary Blood No Growth after 24 hours Assessment and Plan Plan: Assessment: #1. Acute hypoxic respiratory failure related to acute COVID 19 pneumonitis, with onset of symptoms on 11/30/2020, positive outpatient COVID 19 PCR test on 12/02/2020, Remdesivir started on 12/05/2020, we will order convalescent plasma today on 12/06/2020 #2. Increased inflammatory markers related to the above #3. Hyponatremia likely hypovolemic related to decreased oral intake, diarrhea, nausea #4. Recent exposure to her mother who is currently hospitalized with COVID 19 pneumonia #5. Hypertension #6. Hyperlipidemia #7. Diabetes mellitus #8. Obesity with BMI of 32.1 kg/m Plan: Continue current medical treatment, and titrate FiO2 to keep O2 levels at 89-90 %, today's date to up Remdesivir, continue Decadron, continue same dose Lovenox, will order 1 unit of convalescent plasma as becomes available, we'll continue to follow clinical course, follow-up chest x-ray tomorrow. I performed a history & physical examination of the patient and discussed their management with my nurse practitioner, Isatu Carrillo. I reviewed the nurse practitioner's note and agree with the documented findings and plan of care. Lung sounds are positive for bibasilar crackles. The findings and the impression was discussed with the patient. I attest to the documentation by the nurse practitioner. Time with Patient: Less than 30
[2020-12-06 12:14] LABS: Glucose,Whole Blood 120 mg/dL (75-99)
[2020-12-06 13:18] VITALS: BMI 32.1
[2020-12-06 14:41] LABS: Ferritin 459.1 ng/mL (10.0-291.0)
--- NOTE | 2020-12-06 16:01 | P.PN ---
Subjective Progress Note Date: 12/06/20 This is a 53-year-old female with a past medical history of hypertension, obesity, diabetes mellitus and multiple other medical issues brought in to the ER via EMS with complaints of worsening of shortness of breath, fevers chills cough and generalized body aches since Thursday. EMS reported hypoxia on room air. Tested positive for Covid over the weekend. Positive Coronavirus PCR. Her mother was hospitalized last week for COVID. Denies any chest pain, palpitations. EKG reported sinus tachycardia. Reports diarrhea and sometimes constipation, but denies nausea or vomiting. T-max 102.6, mild tachycardia. Requiring 4 L nasal cannula to maintain O2 sats in the mid 90s. Hematology, coagulation panels unremarkable. Sodium 1:30, potassium 5.2, bicarb 22, BUN 15, creatinine 0.68, glucose 127, magnesium 1.7, ferritin pending AST 42, CRP 187.6, pro calcitonin 0.11, mildly elevated. Chest x-ray reporting patchy peripheral and basilar infiltrates compatible with atypical pneumonia .Covid regimen i nitiated. Pulmonary consulted. 12/06/20 evaluated by pulmonary, Domingo initiated maintaining O2 sats of high 80s to low 90% on 8 L nasal cannula. Nonproductive cough .Complains of pressure in the ears, eyes burning and dizziness with position changes. Exertional shortness of breath. Slept well, feels better. Denies chest pain, palpitations. Consuming 75% of breakfast with no nausea vomiting or diarrhea. Objective - Vital Signs Vital signs: Vital Signs Temp 98.2 F 12/06/20 12:49 Pulse 92 12/06/20 12:49 Resp 19 12/06/20 12:49 BP 134/78 12/06/20 12:49 Pulse Ox 97 12/06/20 12:49 Intake & Output 12/05/20 12/06/20 12/06/20 18:59 06:59 18:59 Intake Total 300 480 Balance 300 480 Weight 84.822 kg 84.822 kg Intake: Oral 300 480 Other: # Voids 1 3 - Exam GEN. APPEARANCE: alert, sitting up in bed<NAD. HEAD EXAM: atraumatic, normocephalic, normal inspection EYE EXAM: No pallor. No icterus NECK EXAM: No thyromegaly. No lymphadenopathy. RESPIRATORY EXAM: Bilateral breath sounds are positive. Fine bilateral crackles. CARDIOVASCULAR EXAM: S1 and S2 heard. GI/ABDOMINAL EXAM: Abdomen is soft nontender. Normal bowel sounds. no guarding. EXTREMITIES EXAM: No peripheral edema. NEUROLOGICAL EXAM: alert, oriented X3, no focal neurological deficits. PSYCHIATRIC EXAM: normal affect, normal mood SKIN EXAM: warm, dry, intact, normal color. Absent: rash - Labs CBC & Chem 7: 12/06/20 05:54 12/06/20 05:54 Labs: Abnormal Lab Results - Last 24 Hours (Table) 12/04/20 12/05/20 12/05/20 Range/Units 13:41 17:15 21:01 Sodium (137-145) mmol/L POC Glucose (mg/dL) 207 H 129 H (75-99) mg/dL Ferritin 459.1 H (10.0-291.0) ng/mL AST (14-36) U/L ALT (4-34) U/L C-Reactive Protein (<10.0) mg/L 12/06/20 12/06/20 12/06/20 Range/Units 05:54 07:31 12:13 Sodium 133 L (137-145) mmol/L POC Glucose (mg/dL) 104 H 120 H (75-99) mg/dL Ferritin (10.0-291.0) ng/mL AST 41 H (14-36) U/L ALT 46 H (4-34) U/L C-Reactive Protein 138.4 H (<10.0) mg/L Microbiology - Last 24 Hours (Table) 12/04/20 16:00 Blood Culture - Preliminary Blood No Growth after 24 hours 12/04/20 14:21 Blood Culture - Preliminary Blood No Growth after 24 hours Assessment and Plan Assessment: Acute COVID-19 pneumonitis Possible vertigo secondary to the above Diabetes mellitus type 2 Hypertension Hyperlipidemia Hypothyroidism Obesity, BMI 32.1 Plan: Continue on current medication regime ,monitoring and symptomatic treatment. Gentle IV fluid hydration and prn Antivert ordered. Continue Covid cocktail including Remdesevir. Convalescent plasma ordered .Hemoglobin A1c pending. Prognosis guarded given multiple complex medical issues. The impression and plan of care has been dictated as directed. : I performed a history and examination of this patient, discussed the same with the dictator. I agree with the dictator's note ,documented as a scribe. Any additional findings or plans will be noted.
[2020-12-06] MEDS: SODIUM CHLORIDE 0.9% 1,000 ML IV SCH (16:05)
[2020-12-06] MEDS: MAGNESIUM SULFATE-D5W PMX 1 GM in DEXTROSE/WATER 1 100ML.BAG IVPB SCH ×2 (16:13→17:20)
[2020-12-06 16:17] LABS: Hemoglobin A1C 6.3 % (4.0-6.0)
[2020-12-06 17:06] LABS: Glucose,Whole Blood 175 mg/dL (75-99)
[2020-12-06] MEDS: MECLIZINE 25 MG TAB PO PRN (20:40)
[2020-12-06 20:54] LABS: Glucose,Whole Blood 141 mg/dL (75-99)
[2020-12-07] MEDS: LEVOTHYROXINE 25 MCG TAB PO SCH (05:57)
[2020-12-07] MEDS: SODIUM CHLORIDE 0.9% 1,000 ML IV SCH ×2 (05:58→18:44)
[2020-12-07 07:17] LABS: Glucose,Whole Blood 95 mg/dL (75-99)
[2020-12-07] MEDS: INSULIN ASPART (NovoLOG) 100 UNIT/ML VIAL SQ SCH ×4 (07:34→20:11)
[2020-12-07] MEDS: metFORMIN 500 MG TAB PO SCH ×2 (07:56→17:22)
[2020-12-07] MEDS: ENOXAPARIN 40 MG/0.4 ML SYRINGE SQ SCH (07:56)
[2020-12-07] MEDS: ASCORBIC ACID 500 MG TAB PO SCH ×2 (07:56→20:11)
[2020-12-07] MEDS: NON FORMULARY DRUG (Dextroamphetamine/Amphetamine [Adderall] 10 MG Tablet) PO SCH ×2 (07:57→20:03)
[2020-12-07] MEDS: LOSARTAN 25 MG TAB PO SCH (07:57)
[2020-12-07] MEDS: DEXAMETHASONE SOD PHOSPHATE 10 MG/ML 1 ML VIAL IV SCH (07:57)
[2020-12-07] MEDS: ZINC SULFATE 220 MG CAP PO SCH (07:57)
[2020-12-07] MEDS: MECLIZINE 25 MG TAB PO PRN ×2 (08:07→20:11)
--- NOTE | 2020-12-07 08:36 | XR ---
EXAMINATION TYPE: XR chest 1V portable DATE OF EXAM: 12/07/2020 Comparison: 12/04/2020 Clinical History: 55-year-old female COVID 19 Findings: The cardiomediastinal silhouette, aorta, and pulmonary vasculature are within normal limits. Multifo gunnar patchy and confluent airspace opacity persists and are slightly worsened on the left. No pleural effusion. Impression: Multifocal opacities of COVID pneumonia, slightly increased now on the left.
[2020-12-07] MEDS: REMDESIVIR 100 MG in SODIUM CHLORIDE 0.9% 250 ML IVPB SCH (09:39)
[2020-12-07 12:28] LABS: Glucose,Whole Blood 128 mg/dL (75-99)
--- NOTE | 2020-12-07 13:34 | P.PN ---
Subjective Progress Note Date: 12/07/20 Principal diagnosis: Cough, shortness of breath, headache, COVID 19, hypoxia This is a 55-year-old white female patient with past mental history of hypertension, diabetes mellitus type 2, hyperlipidemia, hypothyroidism, former smoker, who presented to the emergency department on 12/04/2020 with complaints of worsening cough, dyspnea. Patient had the [facility] EMS out at her residence yesterday because she was scheduled to receive Bamlavinimab there was prescribed by Dr. Muñiz her PCP. Patient had positive with test on 12/02/2020 weights she went through the drive-through at the [facility] that offered drive-through COVID 19 testing. She had a positive rapid COVID 19 PCR. First onset of symptoms was last Thursday which was 11/30/2020 with a sore throat, headaches, pins and needles sensation, and gradually patient developed shortness of breath and cough. However when the EMS came out to her residence to administer Bamlavinimab, patient was found to be hypoxic with a pulse ox in the 80s and at that point she was brought into the emergency department for further evaluation and treatment, as she was no longer a candidate for BAM. Chest x-ray in the emergency department showed patchy perihilar and basilar infiltrates compatible with COVID 19 pneumonia, patient is currently requiring 5 L of oxygen per pulse ox is 91-95%, she continues to be febrile, she continues to have a dry cough. She has been ambulating to the bathroom, and does have exertional dyspnea, but no acute distress, hemodynamically she is stable. She reports some nausea and diarrhea but no vomiting. Patient has been started on prophylactic Lovenox, vitamins, and Decadron 6 mg daily. D-dimer 0.57, sodium is 1:30, potassium is 4.2, chloride is 97, BUN is 15, creatinine 0.68, AST is 42, ALT is 31, alkaline phosphatase 91, LDH is 541, CRP is 187.6, pro calcitonin is 0.11. Repeat COVID 19 PCR was positive on 12/04/2020 On 12/06/2020 patient seen in follow-up on medical floor, she is currently up to 8 L of oxygen, her pulse ox is 86-90%, subsequently FiO2 was increased to 10 L. She states she is feeling a bit better, she slept better last night, still feels short of breath, occasional cough, lung sounds reveal diffuse bilateral crackles, afebrile, hemodynamically stable. No chest pain, today's labs have been reviewed, CBC is within normal limits, d-dimer is 0.5, sodium is 133, dust electrolytes and renal profile within normal limits, AST is 41, ALT is 46, al kaline phosphatase is 88, CRP is down to 138, and LDH is 601, pro calcitonin level was low 0.11. No new chest x-ray. Today is day 2 of Remdesivir, she is on prophylactic dose Lovenox, she is on daily dose of IV dexamethasone 6 mg in addition to vitamins, she states her appetite has improved some, no nausea or vomiting. On 12/07/2020 patient seen in follow-up on medical surgical floor. Still on high flow oxygen, on 10 L, with a pulse ox of 91%, overall she states she is feeling better and she looks better, however chest x-ray findings show slightly increased multifocal opacities on the left. No chest discomfort, no significant cough. No fever or chills. Tolerating oral diet, no nausea or vomiting. Objective - Vital Signs Vital signs: Vital Signs Temp 97.4 F L 12/07/20 12:45 Pulse 83 12/07/20 12:45 Resp 18 12/07/20 12:45 BP 162/79 12/07/20 12:45 Pulse Ox 91 L 12/07/20 12:45 Intake & Output 12/06/20 12/07/20 12/07/20 18:59 06:59 18:59 Intake Total 100 720 Balance 100 720 Weight 84.822 kg Intake: Intake, IV Titration 100 720 Amount Magnesium Sulfate-D5w Pmx 100 1 gm In Dextrose/Water 1 100ml.bag @ 100 mls/hr IVPB Q1H [facility] Rx#: [id number] Sodium Chloride 0.9% 1, 720 000 ml @ 80 mls/hr IV . [id number] [facility] Rx#:[id number] Other: # Voids 1 # Bowel Movements 0 - Exam GENERAL EXAM: Alert, pleasant, 55-year-old white female, on 10 L of oxygen a pulse ox of 91% comfortable in no apparent distress. HEAD: Normocephalic/atraumatic. EYES: Normal reaction of pupils, equal size. Conjunctiva pink, sclera white. NOSE: Clear with pink turbinates. THROAT: No erythema or exudates. NECK: No masses, no JVD, no thyroid enlargement, no adenopathy. CHEST: No chest wall deformity. Symmetrical expansion. LUNGS: Equal air entry with bilateral crackles CVS: Regular rate and rhythm, normal S1 and S2, no gallops, no murmurs, no rubs ABDOMEN: Soft, nontender. No hepatosplenomegaly, normal bowel sounds, no guarding or rigidity. EXTREMITIES: No clubbing, no edema, no cyanosis, 2+ pulses and upper and lower extremities. MUSCULOSKELETAL: Muscle strength and tone normal. SPINE: No scoliosis or deformity SKIN: No rashes CENTRAL NERVOUS SYSTEM: Alert and oriented -3. No focal deficits, tone is normal in all 4 extremities. PSYCHIATRIC: Alert and oriented -3. Appropriate affect. Intact judgment and insight. - Labs CBC & Chem 7: 12/06/20 05:54 12/06/20 05:54 Labs: Abnormal Lab Results - Last 24 Hours (Table) 12/04/20 12/06/20 12/06/20 Range/Units 13:41 05:54 17:05 POC Glucose (mg/dL) 175 H (75-99) mg/dL Hemoglobin A1c 6.3 H (4.0-6.0) % Ferritin 459.1 H (10.0-291.0) ng/mL 12/06/20 12/07/20 Range/Units 20:44 12:16 POC Glucose (mg/dL) 141 H 128 H (75-99) mg/dL Hemoglobin A1c (4.0-6.0) % Ferritin (10.0-291.0) ng/mL Microbiology - Last 24 Hours (Table) 12/04/20 16:00 Blood Culture - Preliminary Blood No Growth after 48 hours 12/04/20 14:21 Blood Culture - Preliminary Blood No Growth after 48 hours Assessment and Plan Plan: Assessment: #1. Acute hypoxic respiratory failure related to acute COVID 19 pneumonitis, with onset of symptoms on 11/30/2020, positive outpatient COVID 19 PCR test on 12/02/2020, Remdesivir started on 12/05/2020, we will order convalescent plasma today on 12/06/2020 #2. Increased inflammatory markers related to the above #3. Hyponatremia likely hypovolemic related to decreased oral intake, diarrhea, nausea #4. Recent exposure to her mother who is currently hospitalized with COVID 19 pneumonia #5. Hypertension #6. Hyperlipidemia #7. Diabetes mellitus #8. Obesity with BMI of 32.1 kg/m Plan: Continue current medical treatment, still on high flow oxygen, but clinically feels better, and denies worsening dyspnea, denies chest x-ray has been reviewed showing slightly worsened multifocal opacities on the left. No fever or chills, hemodynamically stable, no chest discomfort, will continue current treatment, awaiting convalescent plasma I performed a history & physical examination of the patient and discussed their management with my nurse practitioner, Isatu Carrillo. I reviewed the nurse practitioner's note and agree with the documented findings and plan of care. Lung sounds are positive for bibasilar crackles. The findings and the impression was discussed with the patient. I attest to the documentation by the nurse practitioner. Time with Patient: Less than 30
--- NOTE | 2020-12-07 13:58 | P.PN ---
Subjective Progress Note Date: 12/07/20 This is a 53-year-old female with a past medical history of hypertension, obesity, diabetes mellitus and multiple other medical issues brought in to the ER via EMS with complaints of worsening of shortness of breath, fevers chills cough and generalized body aches since Thursday. EMS reported hypoxia on room air. Tested positive for Covid over the weekend. Positive Coronavirus PCR. Her mother was hospitalized last week for COVID. Denies any chest pain, palpitations. EKG reported sinus tachycardia. Reports diarrhea and sometimes constipation, but denies nausea or vomiting. T-max 102.6, mild tachycardia. Requiring 4 L nasal cannula to maintain O2 sats in the mid 90s. Hematology, coagulation panels unremarkable. Sodium 1:30, potassium 5.2, bicarb 22, BUN 15, creatinine 0.68, glucose 127, magnesium 1.7, ferritin pending AST 42, CRP 187.6, pro calcitonin 0.11, mildly elevated. Chest x-ray reporting patchy peripheral and basilar infiltrates compatible with atypical pneumonia .Covid regimen i nitiated. Pulmonary consulted. 12/06/20 evaluated by pulmonary, Remdesevir initiated maintaining O2 sats of high 80s to low 90% on 8 L nasal cannula. Nonproductive cough .Complains of pressure in the ears, eyes burning and dizziness with position changes. Exertional shortness of breath. Slept well, feels better. Denies chest pain, palpitations. Consuming 75% of breakfast with no nausea vomiting or diarrhea. 12/07/2020 maintaining O2 sats in the low 90s on 10 L-nasal cannula. Chest x- ray reporting multifocal opacities of Covid pneumonia, slightly increased now on the left. Scheduled for third dose of Remdesevir today. Respiratory mcdaniels feels better, less coughing. Worried and sad, stating her mom in the ICU is doing worse. Reports dizziness better with the Antivert. Denies chest pain, palpitations. Afebrile. Objective - Vital Signs Vital signs: Vital Signs Temp 97.4 F L 12/07/20 12:45 Pulse 83 12/07/20 12:45 Resp 18 12/07/20 12:45 BP 162/79 12/07/20 12:45 Pulse Ox 91 L 12/07/20 12:45 Intake & Output 12/06/20 12/07/20 12/07/20 18:59 06:59 18:59 Intake Total 100 720 Balance 100 720 Weight 84.822 kg Intake: Intake, IV Titration 100 720 Amount Magnesium Sulfate-D5w Pmx 100 1 gm In Dextrose/Water 1 100ml.bag @ 100 mls/hr IVPB Q1H [facility] Rx#: [id number] Sodium Chloride 0.9% 1, 720 000 ml @ 80 mls/hr IV . [id number] [facility] Rx#:[id number] Other: # Voids 1 # Bowel Movements 0 - Exam GEN. APPEARANCE: alert and oriented 3, sitting up in bed.NAD. HEAD EXAM: atraumatic, normocephalic EYE EXAM: No pallor. No icterus NECK EXAM: No thyromegaly. No lymphadenopathy. RESPIRATORY EXAM: Equal air entry. Fine bilateral crackles. CARDIOVASCULAR EXAM: S1 and S2 heard. Regular, no murmur. GI/ABDOMINAL EXAM: Abdomen is soft nontender. Normal bowel sounds. no guarding. EXTREMITIES EXAM: No peripheral edema. No clubbing, no cyanosis. NEUROLOGICAL EXAM: alert, oriented X3, no focal deficits. SKIN EXAM: warm, dry, intact, normal color. Absent: rash - Labs CBC & Chem 7: 12/06/20 05:54 12/06/20 05:54 Labs: Abnormal Lab Results - Last 24 Hours (Table) 12/04/20 12/06/20 12/06/20 Range/Units 13:41 05:54 17:05 POC Glucose (mg/dL) 175 H (75-99) mg/dL Hemoglobin A1c 6.3 H (4.0-6.0) % Ferritin 459.1 H (10.0-291.0) ng/mL 12/06/20 12/07/20 Range/Units 20:44 12:16 POC Glucose (mg/dL) 141 H 128 H (75-99) mg/dL Hemoglobin A1c (4.0-6.0) % Ferritin (10.0-291.0) ng/mL Microbiology - Last 24 Hours (Table) 12/04/20 16:00 Blood Culture - Preliminary Blood No Growth after 48 hours 12/04/20 14:21 Blood Culture - Preliminary Blood No Growth after 48 hours Assessment and Plan Assessment: Acute COVID-19 pneumonitis Possible vertigo secondary to the above Diabetes mellitus type 2, A1c 6.3 Hypertension Hyperlipidemia Hypothyroidism Obesity, BMI 32.1 Plan: Continue on current medication regime ,monitoring and symptomatic treatment. Maintain Covid cocktail including Remdesevir, Antivert. Convalescent plasma pending . Prognosis guarded given multiple complex medical issues. The impression and plan of care has been dictated as directed. : I performed a history and examination of this patient, discussed the same with the dictator. I agree with the dictator's note ,documented as a scribe. Any additional findings or plans will be noted.
[2020-12-07 17:03] LABS: Glucose,Whole Blood 133 mg/dL (75-99)
[2020-12-07 19:57] LABS: Glucose,Whole Blood 149 mg/dL (75-99)
[2020-12-08] MEDS: LEVOTHYROXINE 25 MCG TAB PO SCH (05:45)
[2020-12-08] MEDS: SODIUM CHLORIDE 0.9% 1,000 ML IV SCH (05:46)
[2020-12-08] MEDS: INSULIN ASPART (NovoLOG) 100 UNIT/ML VIAL SQ SCH ×4 (07:57→20:40)
[2020-12-08 08:01] LABS: Glucose,Whole Blood 95 mg/dL (75-99)
[2020-12-08] MEDS: LOSARTAN 25 MG TAB PO SCH (08:02)
[2020-12-08] MEDS: metFORMIN 500 MG TAB PO SCH ×2 (08:02→17:20)
[2020-12-08] MEDS: ASCORBIC ACID 500 MG TAB PO SCH ×2 (08:02→20:43)
[2020-12-08] MEDS: ZINC SULFATE 220 MG CAP PO SCH (08:02)
[2020-12-08] MEDS: ENOXAPARIN 40 MG/0.4 ML SYRINGE SQ SCH (08:02)
[2020-12-08] MEDS: DEXAMETHASONE SOD PHOSPHATE 10 MG/ML 1 ML VIAL IV SCH (08:03)
[2020-12-08] MEDS: NON FORMULARY DRUG (Dextroamphetamine/Amphetamine [Adderall] 10 MG Tablet) PO SCH ×2 (08:03→21:12)
[2020-12-08] MEDS: ACETAMINOPHEN TAB 325 MG TAB PO PRN (08:41)
--- NOTE | 2020-12-08 10:28 | P.PN ---
Subjective Progress Note Date: 12/08/20 Principal diagnosis: Shortness of breath. On 12/06/2020 patient seen in follow-up on medical floor, she is currently up to 8 L of oxygen, her pulse ox is 86-90%, subsequently FiO2 was increased to 10 L. She states she is feeling a bit better, she slept better last night, still feels short of breath, occasional cough, lung sounds reveal diffuse bilateral crackles, afebrile, hemodynamically stable. No chest pain, today's labs have been reviewed, CBC is within normal limits, d-dimer is 0.5, sodium is 133, dust electrolytes and renal profile within normal limits, AST is 41, ALT is 46, alkaline phosphatase is 88, CRP is down to 138, and LDH is 601, pro calcitonin level was low 0.11. No new chest x-ray. Today is day 2 of Remdesivir, she is on prophylactic dose Lovenox, she is on daily dose of IV dexamethasone 6 mg in addition to vitamins, she states her appetite has improved some, no nausea or vomiting. On 12/07/2020 patient seen in follow-up on medical surgical floor. Still on high flow oxygen, on 10 L, with a pulse ox of 91%, overall she states she is feeling better and she looks better, however chest x-ray findings show slightly increased multifocal opacities on the left. No chest discomfort, no significant cough. No fever or chills. Tolerating oral diet, no nausea or vomiting. Progress note dated 12/08/2020. The patient is seen in room 160. Currently, she is on 10 L/m high flow oxygen Therapy, and saline at 80 mL an hour. The patient was quite sad today. She realized that her mother lives upstairs in the intensive care unit, was doing poorly, and would likely today. This patient was admitted with a diagnosis of COVID 19 pneumonia. Currently, she is feeling a bit better. Not a lot better. The patient has been seen over the last couple of days. Her chest x- ray shows diffuse bilateral infiltrates. There was no new lab data today. She is on day 4 of REM. She is also receiving dexamethasone, vitamins, and Lovenox. Objective - Vital Signs Vital signs: Vital Signs Temp 97.8 F 12/08/20 07:46 Pulse 78 12/08/20 07:46 Resp 18 12/08/20 07:46 BP 186/85 12/08/20 07:46 Pulse Ox 93 L 12/08/20 07:46 Intake & Output 12/07/20 12/08/20 12/08/20 18:59 06:59 18:59 Intake Total 1977 720 Balance 1977 720 Intake: Intake, IV Titration 177 720 Amount Remdesivir 100 mg In 250 Sodium Chloride 0.9% 250 ml @ 250 mls/hr IVPB Q24H [facility] Rx#:[id number] Sodium Chloride 0.9% 1, 1520 720 000 ml @ 80 mls/hr IV . [id number] [facility] Rx#:[id number] Blood Product 208 Ffp Pher Conval Covid19 208 Acda 2 Unit [id number] Other: # Voids 4 4 - Exam No acute distress, oriented 3, tearful, on 10 L high flow nasal O2. HEENT examination is grossly unremarkable. Neck supple. Full range of motion. No adenopathy thyromegaly or neck vein distention. Cardiovascular examination reveals regular rhythm rate. S1-S2 normal. No S3 or S4. No discernible murmur noted. Heart rate 78 bpm. Lungs reveal bilateral rhonchi and crackles. Breath sounds equal. She coughs on deep inspiration. No wheezes. Abdomen soft bowel sounds are heard. No masses or tenderness. Extremities are intact. No cyanosis clubbing or edema. Skin is without rash or lesion. Neurologic examination is brief but nonfocal. - Labs CBC & Chem 7: 12/06/20 05:54 12/06/20 05:54 Labs: Abnormal Lab Results - Last 24 Hours (Table) 12/07/20 12/07/20 12/07/20 Range/Units 12:16 17:00 19:56 POC Glucose (mg/dL) 128 H 133 H 149 H (75-99) mg/dL Microbiology - Last 24 Hours (Table) 12/04/20 16:00 Blood Culture - Preliminary Blood No Growth after 72 hours 12/04/20 14:21 Blood Culture - Preliminary Blood No Growth after 72 hours Assessment and Plan Assessment: #1. Acute hypoxic respiratory failure related to acute COVID 19 pneumonitis, with onset of symptoms on 11/30/2020, positive outpatient COVID 19 PCR test on 12/02/2020, Remdesivir started on 12/05/2020, we will order convalescent plasma today on 12/06/2020 #2. Increased inflammatory markers related to the above #3. Hyponatremia likely hypovolemic related to decreased oral intake, diarrhea, nausea #4. Recent exposure to her mother who is currently hospitalized with COVID 19 pneumonia #5. Hypertension #6. Hyperlipidemia #7. Diabetes mellitus #8. Obesity with BMI of 32.1 kg/m Plan: Plan dated 12/08/2020. The patient remains on 10 L high flow nasal O2. She's getting saline at 80 mL an hour. She is on day #4 of REM. She is obviously very sad today because her mother is upstairs in the intensive care unit, and is likely to shortly. Her mother also has COVID 19 pneumonia. Additional recommendations and suggestions are forthcoming. The patient's on appropriate medications. We well continue to follow. Time with Patient: Less than 30
[2020-12-08] MEDS: REMDESIVIR 100 MG in SODIUM CHLORIDE 0.9% 250 ML IVPB SCH (11:23)
[2020-12-08 11:40] LABS: Glucose,Whole Blood 128 mg/dL (75-99)
[2020-12-08] MEDS ORDERED: ALPRAZolam 0.25 MG TAB PO PRN (12:31)
[2020-12-08] MEDS ORDERED: TEMAZEPAM 15 MG CAP PO PRN (12:31)
[2020-12-08 13:17] LABS: ALT 62 U/L (4-34); AST 42 U/L (14-36); African American GFR (CKD) >90 (>60 ml/min/1.73 sqM); Albumin 3.7 g/dL (3.5-5.0); Alkaline Phosphatase 92 U/L (38-126); Anion Gap 10 mmol/L; Blood Urea Nitrogen 16 mg/dL (7-17); Calcium 8.7 mg/dL (8.4-10.2); Carbon Dioxide 24 mmol/L (22-30); Chloride 104 mmol/L (98-107); Glucose 169 mg/dL (74-99); Non-African American GFR(CKD) >90 (>60 ml/min/1.73 sqM); Potassium 4.9 mmol/L (3.5-5.1); Sodium 138 mmol/L (137-145); Total Bilirubin 0.5 mg/dL (0.2-1.3); Total Protein 6.9 g/dL (6.3-8.2)
--- NOTE | 2020-12-08 14:28 | PN ---
PROGRESS NOTE DATE OF SERVICE: 12/08/2020 I am covering for Dr. Muñiz. INTERVAL HISTORY: This is a 55-year-old woman who was admitted with acute COVID-19 pneumonia and as well as acute hypoxic respiratory failure is being closely monitored. The patient is receiving remdesivir. The patient's mother today because of COVID-19, according to the patient. She has some mild hyponatremia. PAST MEDICAL HISTORY: Reviewed. REVIEW OF SYSTEMS: CARDIOVASCULAR: No angina or palpitations. RESPIRATORY: As mentioned earlier. GI: As mentioned earlier. : No dysuria. NERVOUS SYSTEM: No numbness or weakness. CURRENT MEDICATIONS: Reviewed and include Tylenol, vitamin C, Decadron, Lovenox, Synthroid, Cozaar, Glucophage, magnesium, Narcan, remdesivir. PHYSICAL EXAM: GENERAL: Patient is alert and oriented times three. VITAL SIGNS: Pulse 78, blood pressure 196/84, respirations 16, temperature 97.8, pulse ox 93% on 10 L. HEENT: Conjunctivae normal. Oral mucosa moist. NECK: No jugular venous distention. No carotid bruits. No lymph node enlargement. RESPIRATORY: Breath sounds diminished at the bases. A few scattered rhonchi. HEART: S1 and S2, muffled. ABDOMEN: Soft, NERVOUS: No focal deficits. LABS: CBC within normal limits. Sodium 133. Other labs are noted. ASSESSMENT: 1. Acute COVID-19 pneumonia with acute hypoxic respiratory failure. 2. Possible vertigo. 3. Diabetes mellitus type 2. 4. Hypertension. 5. Hyperlipidemia. 6. Hypothyroidism. 7. Obesity. 8. Hyponatremia. 9. Increased AST ALT possibly hepatitis secondary to COVID-19. RECOMMENDATIONS AND DISCUSSION: In this 55-year-old woman who presented with multiple complex medical issues, we will monitor the patient closely. Continue the current management, continue symptomatic treatment. Chest x-ray showed significant bilateral pneumonia, right more the left. We will continue to monitor. Continue the remdesivir. Continue the rest of the medications. Guarded prognosis because of multiple complex medical issues. Further recommendations to follow. Continue the Lovenox and dexamethasone and zinc and other vitamins also. Further recommendations to follow. MMODL / IJN: [id number] /
[2020-12-08 17:27] LABS: Glucose,Whole Blood 119 mg/dL (75-99)
[2020-12-08 20:26] LABS: Glucose,Whole Blood 112 mg/dL (75-99)
[2020-12-09] MEDS: SODIUM CHLORIDE 0.9% 1,000 ML IV SCH ×2 (04:10→07:38)
[2020-12-09 07:17] LABS: Glucose,Whole Blood 82 mg/dL (75-99)
[2020-12-09 07:23] LABS: Basophils # (A) 0.1 k/uL (0-0.2); Basophils % (A) 1 %; Eosinophils # (A) 0.1 k/uL (0-0.7); Eosinophils % (A) 1 %; HCT 43.5 % (34.0-46.0); HGB 14.8 gm/dL (11.4-16.0); Lymphocytes # (A) 3.1 k/uL (1.0-4.8); Lymphocytes % (A) 32 %; MCH 28.5 pg (25.0-35.0); MCHC 34.1 g/dL (31.0-37.0); MCV 83.6 fL (80.0-100.0); Mean Platelet Volume 6.6; Monocytes # (A) 0.7 k/uL (0-1.0); Monocytes % (A) 7 %; Neutrophils # (A) 5.6 k/uL (1.3-7.7); Neutrophils % (A) 58 %; Platelet Count 576 k/uL (150-450); RBC 5.21 m/uL (3.80-5.40); WBC 9.6 k/uL (3.8-10.6)
[2020-12-09] MEDS: LEVOTHYROXINE 25 MCG TAB PO SCH (07:36)
[2020-12-09] MEDS: DEXAMETHASONE SOD PHOSPHATE 10 MG/ML 1 ML VIAL IV SCH (07:36)
[2020-12-09] MEDS: ASCORBIC ACID 500 MG TAB PO SCH (07:37)
[2020-12-09] MEDS: ENOXAPARIN 40 MG/0.4 ML SYRINGE SQ SCH (07:37)
[2020-12-09] MEDS: metFORMIN 500 MG TAB PO SCH (07:37)
[2020-12-09] MEDS: INSULIN ASPART (NovoLOG) 100 UNIT/ML VIAL SQ SCH ×2 (07:37→12:17)
[2020-12-09] MEDS: LOSARTAN 25 MG TAB PO SCH (07:38)
[2020-12-09] MEDS: NON FORMULARY DRUG (Dextroamphetamine/Amphetamine [Adderall] 10 MG Tablet) PO SCH (07:38)
[2020-12-09] MEDS: ZINC SULFATE 220 MG CAP PO SCH (07:38)
[2020-12-09 10:48] VITALS: RESP 18; TEMP 97.7
[2020-12-09 11:43] LABS: Glucose,Whole Blood 146 mg/dL (75-99)
[2020-12-09] MEDS: REMDESIVIR 100 MG in SODIUM CHLORIDE 0.9% 250 ML IVPB SCH (12:56)
[2020-12-09 14:09] VITALS: BP 141/86; PULSE 94
--- NOTE | 2020-12-09 16:22 | P.PN ---
Subjective Progress Note Date: 12/09/20 Principal diagnosis: Cough, shortness of breath, headache, COVID 19, hypoxia This is a 55-year-old white female patient with past mental history of hypertension, diabetes mellitus type 2, hyperlipidemia, hypothyroidism, former smoker, who presented to the emergency department on 12/04/2020 with complaints of worsening cough, dyspnea. Patient had the [facility] out at her residence yesterday because she was scheduled to receive Bamlavinimab there was prescribed by Dr. Muñiz her PCP. Patient had positive with test on 12/02/2020 weights she went through the drive-through at the [facility] that offered drive-through COVID 19 testing. She had a positive rapid COVID 19 PCR. First onset of symptoms was last Thursday which was 11/30/2020 with a sore throat, headaches, pins and needles sensation, and gradually patient developed shortness of breath and cough. However when the EMS came out to her residence to administer Bamlavinimab, patient was found to be hypoxic with a pulse ox in the 80s and at that point she was brought into the emergency department for further evaluation and treatment, as she was no longer a candidate for BAM. Chest x-ray in the emergency department showed patchy perihilar and basilar infiltrates compatible with COVID 19 pneumonia, patient is currently requiring 5 L of oxygen per pulse ox is 91-95%, she continues to be febrile, she continues to have a dry cough. She has been ambulating to the bathroom, and does have exertional dyspnea, but no acute distress, hemodynamically she is stable. She reports some nausea and diarrhea but no vomiting. Patient has been started on prophylactic Lovenox, vitamins, and Decadron 6 mg daily. D-dimer 0.57, sodium is 1:30, potassium is 4.2, chloride is 97, BUN is 15, creatinine 0.68, AST is 42, ALT is 31, alkaline phosphatase 91, LDH is 541, CRP is 187.6, pro calcitonin is 0.11. Repeat COVID 19 PCR was positive on 12/04/2020 On 12/06/2020 patient seen in follow-up on medical floor, she is currently up to 8 L of oxygen, her pulse ox is 86-90%, subsequently FiO2 was increased to 10 L. She states she is feeling a bit better, she slept better last night, still feels short of breath, occasional cough, lung sounds reveal diffuse bilateral crackles, afebrile, hemodynamically stable. No chest pain, today's labs have been reviewed, CBC is within normal limits, d-dimer is 0.5, sodium is 133, dust electrolytes and renal profile within normal limits, AST is 41, ALT is 46, al kaline phosphatase is 88, CRP is down to 138, and LDH is 601, pro calcitonin level was low 0.11. No new chest x-ray. Today is day 2 of Remdesivir, she is on prophylactic dose Lovenox, she is on daily dose of IV dexamethasone 6 mg in addition to vitamins, she states her appetite has improved some, no nausea or vomiting. On 12/07/2020 patient seen in follow-up on medical surgical floor. Still on high flow oxygen, on 10 L, with a pulse ox of 91%, overall she states she is feeling better and she looks better, however chest x-ray findings show slightly increased multifocal opacities on the left. No chest discomfort, no significant cough. No fever or chills. Tolerating oral diet, no nausea or vomiting. On 12/09/2000 patient seen in follow-up on medical floor, she has made remarkable improvement in terms of dyspnea and oxygenation, she is currently on room air, with a pulse ox of 92%, feeling well, no chest discomfort, breathing comfortably, no cough, no congestion, no chest pain. Unfortunately her mother did not survive the COVID 19 pneumonia and the patient is obviously very upset. Patient has completed Remdesivir treatment, she was treated with steroids, anticoagulants, and received a unit of convalescent plasma, she responded very favorably to treatment Objective - Vital Signs Vital signs: Vital Signs Temp 97.7 F 12/09/20 13:52 Pulse 94 12/09/20 13:52 Resp 18 12/09/20 13:52 BP 141/86 12/09/20 13:52 Pulse Ox 92 L 12/09/20 13:52 Intake & Output 12/08/20 12/09/20 12/09/20 18:59 06:59 18:59 Intake Total 2080 Output Total 350 Balance 1730 Intake: Intake, IV Titration 960 Amount Sodium Chloride 0.9% 1, 960 000 ml @ 80 mls/hr IV . [id number] [facility] Rx#:[id number] Oral 1120 Output: Urine 350 Other: # Voids 4 2 2 # Bowel Movements 1 - Exam GENERAL EXAM: Alert, pleasant, 55-year-old white female, on room air with a pulse ox of 92%, comfortable in no apparent distress. HEAD: Normocephalic/atraumatic. EYES: Normal reaction of pupils, equal size. Conjunctiva pink, sclera white. NOSE: Clear with pink turbinates. THROAT: No erythema or exudates. NECK: No masses, no JVD, no thyroid enlargement, no adenopathy. CHEST: No chest wall deformity. Symmetrical expansion. LUNGS: Equal air entry with minimal bibasilar crackles CVS: Regular rate and rhythm, normal S1 and S2, no gallops, no murmurs, no rubs ABDOMEN: Soft, nontender. No hepatosplenomegaly, normal bowel sounds, no guarding or rigidity. EXTREMITIES: No clubbing, no edema, no cyanosis, 2+ pulses and upper and lower extremities. MUSCULOSKELETAL: Muscle strength and tone normal. SPINE: No scoliosis or deformity SKIN: No rashes CENTRAL NERVOUS SYSTEM: Alert and oriented -3. No focal deficits, tone is normal in all 4 extremities. PSYCHIATRIC: Alert and oriented -3. Appropriate affect. Intact judgment and insight. - Labs CBC & Chem 7: 12/09/20 06:07 12/08/20 12:39 Labs: Abnormal Lab Results - Last 24 Hours (Table) 12/08/20 12/08/20 12/09/20 Range/Units 17:19 20:25 06:07 Plt Count 576 H (150-450) k/uL POC Glucose (mg/dL) 119 H 112 H (75-99) mg/dL 12/09/20 Range/Units 11:13 Plt Count (150-450) k/uL POC Glucose (mg/dL) 146 H (75-99) mg/dL Microbiology - Last 24 Hours (Table) 12/04/20 16:00 Blood Culture - Preliminary Blood No Growth after 96 hours 12/04/20 14:21 Blood Culture - Preliminary Blood No Growth after 96 hours Assessment and Plan Plan: Assessment: #1. Acute hypoxic respiratory failure related to acute COVID 19 pneumonitis, with onset of symptoms on 11/30/2020, positive outpatient COVID 19 PCR test on 12/02/2020, Remdesivir started on 12/05/2020, we will order convalescent plasma today on 12/06/2020 #2. Increased inflammatory markers related to the above #3. Hyponatremia likely hypovolemic related to decreased oral intake, diarrhea, nausea #4. Recent exposure to her mother who is currently hospitalized with COVID 19 pneumonia #5. Hypertension #6. Hyperlipidemia #7. Diabetes mellitus #8. Obesity with BMI of 32.1 kg/m Plan: Patient is very well, she is on room air, she has completed Remdesivir treatment, she status post convalescent plasma, she is being discharged home today she will need to follow-up in the office with Dr. Perry in 2 weeks. She'll go home on Decadron 6 mg for 10 more days, and vitamins, she is instructed to come back for re-evaluation. I performed a history & physical examination of the patient and discussed their management with my nurse practitioner, Isatu Carrillo. I reviewed the nurse practitioner's note and agree with the documented findings and plan of care. Lung sounds are positive for bibasilar crackles. The findings and the impression was discussed with the patient. I attest to the documentation by the nurse practitioner. Time with Patient: Less than 30
--- NOTE | 2020-12-09 19:18 | DS ---
DISCHARGE SUMMARY DATE OF SERVICE: 12/09/2020 FINAL DIAGNOSES: 1. Acute COVID-19 pneumonia with acute hypoxic respiratory failure. 2. Possible vertigo. 3. Diabetes type 2. 4. Hypertension. 5. Hyperlipidemia. 6. Hypothyroidism. 7. Hyponatremia. 8. Obesity. 9. Increased AST and ALT, possibly hepatitis secondary to COVID-19. DISCHARGE DISPOSITION: Patient discharged in a stable condition, guarded prognosis. Time taken 35 minutes. HISTORY OF PRESENT ILLNESS: This 55-year-old woman with a past medical history of multiple medical problems was being followed by Dr. Muñiz in the outpatient setting, admitted with acute COVID-19 pneumonia. The patient treated with Remdesivir and convalescent plasma. Patient improved significantly. Dr. Perry saw the patient. EXAM: On exam vital signs are stable. Cardiovascular is normal. Abdomen soft, nontender. Nervous system: No focal deficits. Room air pulse ox normal. DISCHARGE DATA: Diet is cardiac. Followup with Dr. Muñiz in 2-3 days. CBC, CMP. Follow up with Pulmonary as recommended. DISCHARGE MEDICATIONS ARE: 1. Ecotrin 81 mg q.h.s. 2. Dexamphetamine 10 mg b.i.d. as before. 3. Ambien p.r.n. 4. Cozaar 25 mg daily. 5. Lipitor 40 mg q.h.s. 6. Metformin 1000 mg p.o. b.i.d. 7. Steglatro 5 mg p.o. daily. 8. Synthroid 25 mcg p.o. daily. 9. Triamterene hydrochlorothiazide 1 tablet p.o. daily. 10.Tylenol p.r.n. 11.Vitamin D2 50,000 p.o. daily. 12.Multivitamin. 13.Decadron 6 mg daily for 10 days. 14.Oral zinc 220 mg p.o. daily. 15.Vitamin C 500 mg p.o. daily. Please follow up labs with Dr. Muñiz as well as Accu-Cheks before meals and at bedtime with Dr. Muñiz. Follow up with Pulmonary as advised. MMODL / IJN: [id number] /
== END 2020-12-09 15:24 | disposition home or self-care (01) | DRG 177 ==
LOC: EC 13:07 → 4SSUR 16:03 → 1SOBS 12-05 16:02 → 4SSUR 12-08 23:10
PROVIDERS: ADMIT Family Medicine; ATTEND Family Medicine
PROC: XW033E5 Introduction of Remdesivir Anti-infective into Peripheral Vein, Percutaneous Approach, New Technology Group 5 (ICD-10-PCS; principal; 2020-12-05)
PROC: XW13325 Transfusion of Convalescent Plasma (Nonautologous) into Peripheral Vein, Percutaneous Approach, New Technology Group 5 (ICD-10-PCS; 2020-12-06)
DX: U07.1 COVID-19 (principal); J12.82 Pneumonia due to coronavirus disease 2019; J96.01 Acute respiratory failure with hypoxia; E87.1 Hypo-osmolality and hyponatremia; B17.8 Other specified acute viral hepatitis; E11.9 Type 2 diabetes mellitus without complications; I10 Essential (primary) hypertension; E78.5 Hyperlipidemia, unspecified; E03.9 Hypothyroidism, unspecified; E86.1 Hypovolemia; E66.9 Obesity, unspecified; Z90.49 Acquired absence of other specified parts of digestive tract; Z98.51 Tubal ligation status; Z98.890 Other specified postprocedural states; Z87.891 Personal history of nicotine dependence; Z82.49 Family history of ischemic heart disease and other diseases of the circulatory system; Z82.3 Family history of stroke; Z83.3 Family history of diabetes mellitus; Z79.84 Long term (current) use of oral hypoglycemic drugs; Z79.82 Long term (current) use of aspirin; Z79.890 Hormone replacement therapy; Z79.899 Other long term (current) drug therapy; Z68.32 Body mass index [BMI] 32.0-32.9, adult
CPT/HCPCS: 36415; 71045; 80053; 82728; 83036; 83605; 83615; 83735; 84145; 85025; 85379; 85610; 85730; 86140; 86850; 86900; 86901; 87040; 87635; 93005; 96365; 96366; 99285

== ENCOUNTER → 2020-12-17 | Outpatient (CLI) | payer MEDICAID ==
[2020-12-17 23:20] LABS: HCT 45.4 % (37.2-46.3); HGB 14.5 g/dL (12.0-15.0); MCH 27.6 pg (27.0-32.0); MCHC 31.9 g/dL (32.0-37.0); MCV 86.3 fL (80.0-97.0); Mean Platelet Volume 8.8 fL (9.5-12.2); Platelet Count 459 X 10*3/uL (140-440); RBC 5.26 X 10*6/uL (4.10-5.20); RDW 13.8 % (11.5-14.5); WBC 18.66 X 10*3/uL (4.50-10.00)
[2020-12-18 00:45] LABS: Basophils % (A) 0.5 %; Eosinophils # (A) 0.16 X 10*3/uL (0.04-0.35); Eosinophils % (A) 0.9 %; Lymphocytes # (A) 6.32 X 10*3/uL (0.90-5.00); Lymphocytes % (A) 33.9 %; Monocytes # (A) 1.02 X 10*3/uL (0.20-1.00); Monocytes % (A) 5.5 %; Neutrophils % (A) 58.3 %
[2020-12-18 19:12] LABS: African American GFR (CKD) 96.2 (60.0-200.0); Albumin/Globulin Ratio 1.74 (1.60-3.17); Anion Gap 8.3 mmol/L (4.00-12.00); BUN/Creat Ratio 26.25 Ratio (12.00-20.00); Calcium 9.7 mg/dL (8.7-10.3); Carbon Dioxide 29.7 mmol/L (21.6-31.8); Globulin 2.3 g/dL (1.6-3.3); Potassium 4.5 mmol/L (3.5-5.5); Total Bilirubin 0.4 mg/dL (0.3-1.2); Total Protein 6.3 g/dL (6.2-8.2)
== END | disposition home or self-care (01) ==
LOC: LABWHC1 15:26
PROVIDERS: ATTEND Hospitalist
DX: D64.9 Anemia, unspecified (principal); R94.5 Abnormal results of liver function studies
CPT/HCPCS: 36415; 80053; 85025

== ENCOUNTER → 2023-01-09 | Outpatient (CLI) | payer MEDICAID ==
--- NOTE | 2023-01-09 09:57 | BD ---
EXAMINATION TYPE: Axial Bone Density DATE OF EXAM: 01/09/2023 CLINICAL HISTORY: 57 years old Female. ICD-10 CODE: Z78.0 POST MENOPAUSAL WITHOUT HRT Height: 63 Weight: 176.7 FRAX RISK QUESTIONS: Alcohol (3 or more units per day): no Family History (Parent hip fracture): no Glucocorticoids (More than 3mos): no History of Fracture in Adulthood: no Secondary Osteoporosis: 1. Type 1 Diabetes: no 2. Hyperthyroidism: no 3. Menopause before 45: yes 4. Malnutrition: no 5. Chronic liver disease: no Rheumatoid Arthritis: no Current Tobacco Use: no RISK FACTORS HISTORY OF: Hip Fracture (Right/Left): no Spine Fracture: no History of Wrist Fracture: no Surgery to Spine/Hip(right/left)/Wrist (right/left): no Family History of Osteoporosis: no Active: yes Diet low in dairy products/other sources of calcium: yes Postmenopausal woman: yes Take estrogen and/or progesterone medications: no Lost more than 2 inches in height since high school: no Frequent falls: no Poor Health: no Hyperparathyroidism: no Adrenal Insufficiency: no MEDICATIONS: Prednisone or other steroids: no Thyroid Medications: no Osteoporosis Medications: no Additional Medications: BP Meds, Cholesterol Meds, Diabetic Meds, Vit D Weekly, Magnesium Additional History: EXAM MEASUREMENTS: Bone mineral densitometry was performed using the [employer] System. Bone mineral density as measured about the Lumbar spine is: ----- L1-L4(G/cm2): 1.254 T Score Values are as follows: ----- L1: 1.0 ----- L2: 0.8 ----- L3: 0.3 ----- L4: 0.4 ----- L1-L4: 0.6 Z Score Values are as follows: ----- L1: 1.5 ----- L2: 1.3 ----- L3: 0.7 ----- L4: 0.9 ----- L1-L4: 1.1 Baseline Study Bone mineral density about the R hip (g/cm2): 1.030 Bone mineral density about the L hip (g/cm2): 1.066 T Score values are as follows: -----R Neck: -0.8 -----L Neck: -0.8 -----R Total: 0.2 -----L Total: 0.5 Z Score values are as follows: -----R Neck: 0.0 -----L Neck: 0.0 -----R Total: 0.6 -----L Total: 0.9 Baseline Study FRAX%s: The graph provided illustrates a 6.0% chance for a major osteoporotic fx and a 0.2% chance fo r the hips probability for fx in 10 years time. IMPRESSION: Normal (Values between +1 and -1 indicate normal bone mass). Consider repeating this study in 5 year s or sooner if there is some new clinical indication. NOTE: T-SCORE=SD OF THE YOUNG ADULT MEAN.
--- NOTE | 2023-01-12 18:40 | MM ---
Reason for Exam: Screening (asymptomatic). Last mammogram was performed 2 year(s) and 3 month(s) ago. Patient History: Menarche at age 12. First Full-Term at age 17. Postmenopausal. Estrogen for 1 year, 1 month. Progesterone for 1 year, 1 month. Risk Values: Steffanie 5 year model risk: 0.9%. NCI Lifetime model risk: 5.7%. Prior Study Comparison: 09/13/2019 Bilateral Diagnostic Mammogram, [facility]. 03/14/2020 Right Diagnostic Mammogram, [facility]. 10/01/2020 Bilateral Screening Mammogram, [facility]. Tissue Density: There are scattered fibroglandular densities. Findings: Analyzed By CAD. Unchanged focal asymmetry upper outer quadrant left breast. There is no suspicious group of microcalcifications or new suspicious mass in either breast. Overall Assessment: Benign, BI-RAD 2 Management: Screening Mammogram of both breasts in 1 year. . Patient should continue monthly self-breast exams. A clinical breast exam by your physician is recommended on an annual basis. This exam should not preclude additional follow-up of suspicious palpable abnormalities. Note on Steffanie scores and lifetime risk: 1. A Steffanie score greater than 3% is considered moderate risk. If this is the case, consider specialist referral to assess eligibility for a risk reducing agent. 2. If overall lifetime risk for the development of breast cancer is 20% or higher, the patient may qualify for future screening with alternating mammogram and breast MRI. Electronically signed and approved by: Erika Robbins M.D. Radiologist
== END | disposition home or self-care (01) ==
LOC: RADMAMWWP 07:44
PROVIDERS: ATTEND Family Medicine
DX: Z12.31 Encounter for screening mammogram for malignant neoplasm of breast (principal); Z78.0 Asymptomatic menopausal state; M81.0 Age-related osteoporosis without current pathological fracture
CPT/HCPCS: 77063; 77067; 77080